=== PATIENT | female | born 1950 | race Caucasian/White ===

== ENCOUNTER 2020-07-13 17:56 | Inpatient (IN) | payer MEDICARE, BC ==
[2020-07-13] MEDS ORDERED: Docusate Sodium 100 MG Cap PO PRN (18:17)
[2020-07-13] MEDS ORDERED: Ondansetron 4 MG Tab.DIS PO PRN (18:17)
[2020-07-13] MEDS ORDERED: Temazepam 15 MG Cap PO PRN (18:17)
[2020-07-13] MEDS ORDERED: oxyCODONE 5 MG Tab PO PRN (18:17)
[2020-07-13] MEDS ORDERED: Acetaminophen 325 MG Tab PO PRN (18:17)
--- NOTE | 2020-07-13 18:29 | PCM.HP.2 ---
H&P History of Present Illness - General Date of Service: 07/13/20 Admit Problem/Dx: Admission Diagnosis/Problem Admission Diagnosis/Problem Hypoxia Source of Information: Patient, Old Records History Limitations: Reports: No Limitations - History of Present Illness Initial Comments - Free Text/Narative: Patient is a 69-year-old lady who is a direct admission from [facility] due to hypoxia associated with COVID-19. Patient reports that her shortness of breath with fever and chills started approximately 6 days ago. The patient then had presented to the emergency department and was subsequently transferred here for direct admission. The patient had been in her usual state of health. She does take medications for hypertension and dyslipidemia. The p atient also has had no specific aggravating or relieving factors although when the patient says that she is walking around she feels more short of breath. Patient has denied any pain. She has no nausea or vomiting. Onset of Symptoms: Reports: Gradual Duration of Symptoms: Reports: Day(s): Location: Reports: Generalized Quality: Reports: Ache Improves with: Reports: Rest, Other (Oxygen) Worsens with: Reports: Breathing, Movement Context: Reports: Sick Contact Associated Symptoms: Reports: Cough, Fever/Chills - Related Data Allergies/Adverse Reactions: Allergies Allergy/AdvReac Type Severity Reaction Status Date / Time atorvastatin [From Lipitor] Allergy Body Aches Verified 07/13/20 18:12 pravastatin Allergy Body Aches Verified 07/13/20 18:12 Home Medications: Home Meds Aspirin [Halfprin] 81 mg PO DAILY 07/13/20 [History] Furosemide 40 mg PO DAILY 07/13/20 [History] Magnesium Oxide 250 mg PO DAILY 07/13/20 [History] Omeprazole 20 mg PO DAILY 07/13/20 [History] Rosuvastatin [Crestor] 20 mg PO DAILY 07/13/20 [History] lisinopriL [Lisinopril] 10 mg PO DAILY 07/13/20 [History] traMADol [Ultram] 50 - 100 mg PO Q6HR PRN 07/13/20 [History] Past Medical History HEENT History: Reports: Impaired Vision Other HEENT History: wears glasses, upper partial plate Cardiovascular History: Reports: High Cholesterol, Hypertension Other Cardiovascular History: "heart palpitations" Gastrointestinal History: Reports: GERD Genitourinary History: Reports: Chronic Renal Insuffiency Other Genitourinary History: stage 3 [employer] History: Reports: Musculoskeletal History: Reports: Neck Pain, Chronic Other Musculoskeletal History: been going to physical therapy for hip/leg pain, muscle spasms Neurological History: Reports: None Psychiatric History: Reports: None Endocrine/Metabolic History: Reports: None Dermatologic History: Reports: Other (See Below) Other Dermatologic History: small scabbed area to r upper thigh due to a mole being frozen off. - Infectious Disease History Infectious Disease History: Reports: Chicken Pox, Measles, Mumps - Past Surgical History Cardiovascular Surgical History: Reports: None GI Surgical History: Reports: Cholecystectomy, Colonoscopy, EGD Female Surgical History: Reports: Hysterectomy Other Musculoskeletal Surgeries/Procedures:: back fracture-no sx. buldging discs Oncologic Surgical History: Reports: Biopsy of Breast Other Oncologic Surgeries/Procedures: benign Social & Family History - Family History Family Medical History: Noncontributory - Tobacco Use Tobacco Use Status *Q: Never Tobacco User - Caffeine Use Caffeine Use: Reports: Coffee - Recreational Drug Use Recreational Drug Use: No H&P Review of Systems - Review of Systems: Review Of Systems: See Below General: Reports: Fever, Chills, Malaise, Weakness HEENT: Reports: No Symptoms Pulmonary: Reports: Shortness of Breath, Cough Cardiovascular: Reports: No Symptoms Gastrointestinal: Reports: No Symptoms Genitourinary: Reports: No Symptoms Musculoskeletal: Reports: No Symptoms Skin: Reports: No Symptoms Psychiatric: Reports: No Symptoms Neurological: Reports: No Symptoms Hematologic/Lymphatic: Reports: No Symptoms Immunologic: Reports: No Symptoms Exam - Exam Exam: See Below - Vital Signs Vital Signs: Last Vital Signs Temp 36.9 C 07/13/20 17:55 Pulse 93 07/13/20 17:51 Resp 16 07/13/20 17:51 BP 131/95 H 07/13/20 17:51 Pulse Ox 94 L 07/13/20 17:51 Weight: 67.54 kg - Exam Quality Assessment: No: Supplemental Oxygen General: Alert, Oriented, Cooperative HEENT: Conjunctiva Clear, EACs Clear, EOMI, Hearing Intact, Mucosa Moist & [place], Nares Patent Neck: Supple, Trachea Midline Lungs: Normal Respiratory Effort, Crackles Cardiovascular: Regular Rate, Regular Rhythm GI/Abdominal Exam: Normal Bowel Sounds, Soft, Non-Tender, No Distention (Female) Exam: Deferred Rectal (Female) Exam: Deferred Back Exam: Normal Inspection, Full Range of Motion Extremities: Normal Inspection, Normal Range of Motion, No Pedal Edema Skin: Warm, Dry, Intact Neurological: Cranial Nerves Intact Neuro Extensive - Mental Status: Alert, Oriented x3 Neuro Extensive - Motor, Sensory, Reflexes: CN II-XII Intact, Normal Gait Psychiatric: Alert, Normal Affect, Normal Mood - Patient Data Result Diagrams: 07/13/20 18:34 07/13/20 18:34 Sepsis Event Note - Focused Exam Vital Signs: Vital Signs Temp Pulse Resp BP Pulse Ox 07/13/20 17:55 36.9 C 07/13/20 17:51 93 16 131/95 H 94 L - Problem List (1) COVID-19 SNOMED Code(s): 356744840 ICD Code: U07.1 - COVID-19 Status: Acute Priority: High Current Visit: Yes (2) Hypoxia SNOMED Code(s): 645381663 ICD Code: R09.02 - HYPOXEMIA Status: Acute Current Visit: Yes (3) Hypertension SNOMED Code(s): 00485798 ICD Code: I10 - ESSENTIAL (PRIMARY) HYPERTENSION Status: Acute Current Visit: Yes (4) Coronary artery disease SNOMED Code(s): 88049444 ICD Code: I25.10 - ATHSCL HEART DISEASE OF [place] CORONARY ARTERY W/O ANG PCTRS Status: Acute Current Visit: Yes (5) Chronic kidney disease, stage III (moderate) SNOMED Code(s): 020921424 ICD Code: N18.30 - CHRONIC KIDNEY DISEASE, STAGE 3 UNSPECIFIED Status: Acute Current Visit: Yes Qualifiers: Chronic kidney disease stage 3 subtype: stage 3b (GFR 30-44) Qualified Code(s): N18.32 - Chronic kidney disease, stage 3b Problem List Initiated/Reviewed/Updated: Yes Orders Last 24hrs: Active Orders 24 hr Category Date Time Status Patient Status [ADT] Routine ADT 07/13/20 17:57 Active Cardiac Monitoring [RC] CONTINUOUS Care 07/13/20 18:17 Ordered Oxygen Therapy [RC] PRN Care 07/13/20 18:17 Ordered Up ad Ly [RC] ASDIRECTED Care 07/13/20 18:17 Ordered VTE/DVT Education [RC] PER UNIT ROUTINE Care 07/13/20 18:17 Ordered Vital Signs [RC] Q4H Care 07/13/20 18:17 Ordered Heart Healthy Diet [DIET] Diet 07/14/20 Breakfast Ordered Chest 1V Frontal [CR] Routine Exams 07/13/20 18:13 Ordered C-REACTIVE PROTEIN [CHEM] Routine Lab 07/13/20 18:17 Ordered CBC WITH AUTO DIFF [HEME] Routine Lab 07/13/20 18:17 Ordered COMPREHENSIVE METABOLIC PN,CMP [CHEM] Routine Lab 07/13/20 18:17 Ordered D-DIMER QUANTITATIVE [COAG] Routine Lab 07/13/20 18:17 Ordered FERRITIN [CHEM] Routine Lab 07/13/20 18:17 Ordered LACTATE DEHYDROGENASE,LDH [CHEM] Routine Lab 07/13/20 18:17 Ordered MAGNESIUM [CHEM] Routine Lab 07/13/20 18:17 Ordered PHOSPHORUS [CHEM] Routine Lab 07/13/20 18:17 Ordered PRO B-TYPE NATRIUR PEPT,BNPPRO [CHEM] Routine Lab 07/13/20 18:17 Ordered PROCALCITONIN [REF] Routine Lab 07/13/20 18:17 Ordered TROPONIN I [CHEM] Routine Lab 07/13/20 18:17 Ordered VITAMIN D,25-HYDROXY [CHEM] Routine Lab 07/13/20 18:17 Ordered Acetaminophen [TylenoL] Med 07/13/20 18:17 Ordered 650 mg PO Q4H PRN Docusate Sodium [Colace] Med 07/13/20 18:17 Ordered 100 mg PO BID PRN Enoxaparin [Lovenox] Med 07/13/20 18:30 Ordered 40 mg SUBCUT DAILY Ondansetron [Zofran ODT] Med 07/13/20 18:17 Ordered 4 mg PO Q6H PRN Remdesivir (Eua) [Remdesivir Powder (EUA)] 100 mg Med 07/14/20 18:30 Ordered Sodium Chloride 0.9% [Normal Saline] 100 ml IV Q24H Remdesivir (Eua) [Remdesivir Powder (EUA)] 200 mg Med 07/13/20 18:22 Ordered Sodium Chloride 0.9% [Normal Saline] 250 ml IV ONETIME Sodium Chloride 0.9% [Normal Saline] 1,000 ml Med 07/13/20 18:30 Ordered IV ASDIRECTED Temazepam [Restoril] Med 07/13/20 18:17 Ordered 15 mg PO BEDTIME PRN dexAMETHasone [Dexamethasone] Med 07/13/20 18:30 Ordered 6 mg IV DAILY oxyCODONE Med 07/13/20 18:17 Ordered 5 mg PO Q4H PRN Resuscitation Status Routine Resus Stat 07/13/20 18:17 Ordered Medication Orders Acetaminophen (Tylenol) 650 mg PO Q4H PRN PRN Reason: Pain (Mild 1-3)/fever Dexamethasone (Dexamethasone) 6 mg IV DAILY WILLIE Docusate Sodium (Colace) 100 mg PO BID PRN PRN Reason: Constipation Enoxaparin Sodium (Lovenox) 40 mg SUBCUT DAILY [facility] Sodium Chloride (Normal Saline) 1,000 mls @ 75 mls/hr IV ASDIRECTED WILLIE Remdesivir 200 mg/ Sodium (Chloride) 250 mls @ 250 mls/hr IV ONETIME ONE Stop: 07/13/20 18:23 Remdesivir 100 mg/ Sodium (Chloride) 100 mls @ 100 mls/hr IV Q24H WILLIE Stop: 07/17/20 19:29 Ondansetron HCl (Zofran Odt) 4 mg PO Q6H PRN PRN Reason: nausea, able to take PO Oxycodone HCl (Oxycodone) 5 mg PO Q4H PRN PRN Reason: Pain (moderate 4-6) Temazepam (Restoril) 15 mg PO BEDTIME PRN PRN Reason: Sleep Assessment/Plan Comment:: The patient has been admitted as an inpatient due to the COVID-19 treatment. The patient's oxygen will be adjusted as necessary to keep her oxygen saturations around 90 to 92%. The patient also has been started on remdesivir 200 mg IV x1 followed by 100 mg IV x4. I have also discussed with the patient the risk, benefits and alternatives of convalescent plasma and the patient has been willing to take this. The patient will be started on Pepcid 20 mg p.o. twice daily. The patient also has been started on dexamethasone 6 mg IV along with likely transition to p.o. dexamethasone. Patient also has chronic kidney disease stage III with an EGFR of 40 mL/min. Her medications will be renally dosed as necessary. The patient will be kept on a regular diet as tolerated. She has been encouraged to ambulate in the room. The patient's home medications have been restarted. She should be appropriate for discharge in 3 to 5 days. - Mortality Measure Prognosis:: Good
[2020-07-13 19:50] LABS: VITAMIN D,25-HYDROXY 41.8 ng/ml (30.0-100.0)
[2020-07-13] MEDS: Sodium Chloride 0.9% 1,000 ML IV SCH (19:51)
[2020-07-13] MEDS: Enoxaparin 40 MG/0.4 ML Syringe SUBCUT SCH (21:00)
[2020-07-13] MEDS ORDERED: Sodium Chloride 0.9% 100 ML ONE (21:58)
[2020-07-14] MEDS ORDERED: traMADol 50 MG Tab PO PRN (07:51)
[2020-07-14] MEDS: Aspirin 81 MG Tab.EC PO SCH (08:33)
[2020-07-14] MEDS: Rosuvastatin 10 MG Tab PO SCH (08:33)
[2020-07-14] MEDS: Lisinopril 10 MG Tab PO SCH (08:34)
[2020-07-14] MEDS: Magnesium Oxide 400 MG Tab PO SCH (08:34)
[2020-07-14] MEDS: Sodium Chloride 0.9% 1,000 ML IV SCH (08:55)
[2020-07-14] MEDS ORDERED: Famotidine 20 MG Tab PO SCH (09:00)
[2020-07-14] MEDS ORDERED: Dexamethasone 10 MG/ML SDV IV SCH (10:00)
[2020-07-14] MEDS: Furosemide 20 MG Tab PO PRN (11:43)
--- NOTE | 2020-07-14 14:09 | PCM.PN ---
<Maritza Jackson M - Last Filed: 07/14/20 14:28> - General Info Date of Service: 07/14/20 Admission Dx/Problem (Free Text): Admission Diagnosis/Problem Admission Diagnosis/Problem Hypoxia Subjective Update: Patient reports feeling better than yesterday. She states that today is the first day she has finally had an appetite. She is on room air. Complains of pain in her chest when she takes a deep breath or coughs. She states that cough has significantly decreased from what it had been. Functional Status: Reports: Pain Controlled, Tolerating Diet, Ambulating, Urinating, Incentive Spirometry - Review of Systems General: Reports: Fatigue HEENT: Reports: No Symptoms Pulmonary: Reports: Cough, Sputum (Scant amount of white sputum.) Cardiovascular: Reports: Edema (Bilateral lower extremities.) Gastrointestinal: Reports: Diarrhea (States that she had a significant amount of diarrhea within the last few days but that has decreased as well.) Genitourinary: Reports: No Symptoms Musculoskeletal: Reports: No Symptoms Skin: Reports: No Symptoms Neurological: Reports: No Symptoms Psychiatric: Reports: No Symptoms - Patient Data Vitals - Most Recent: Last Vital Signs Temp 97.5 F 07/14/20 11:44 Pulse 86 07/14/20 11:44 Resp 29 H 07/14/20 12:00 BP 107/57 L 07/14/20 11:44 Pulse Ox 94 L 07/14/20 11:44 Weight - Most Recent: 67.54 kg I&O - Last 24 Hours: Intake & Output 07/13/20 07/14/20 07/14/20 22:59 06:59 14:59 Intake Total 0 2096 775 Output Total 800 Balance 0 1296 775 Lab Results Last 24 Hours: Laboratory Results - last 24 hr 07/13/20 07/13/20 07/13/20 Range/Units 18:34 18:34 18:34 WBC 3.05 L (3.98-10.04) K/mm3 RBC 4.55 (3.98-5.22) M/mm3 Hgb 14.3 (11.2-15.7) gm/dl Hct 41.7 (34.1-44.9) % MCV 91.6 (79.4-94.8) fl MCH 31.4 (25.6-32.2) pg MCHC 34.3 (32.2-35.5) g/dl RDW Std Deviation 42.8 (36.4-46.3) fL Plt Count 206 (182-369) K/mm3 MPV 8.9 L (9.4-12.3) fl Neut % (Auto) 86.6 H (34.0-71.1) % Lymph % (Auto) 9.5 L (19.3-51.7) % Burnett % (Auto) 3.3 L (4.7-12.5) % Eos % (Auto) 0 L (0.7-5.8) Baso % (Auto) 0.3 (0.1-1.2) % Neut # (Auto) 2.64 (1.56-6.13) K/mm3 Lymph # (Auto) 0.29 L (1.18-3.74) K/mm3 [place] # (Auto) 0.10 L (0.24-0.36) K/mm3 Eos # (Auto) 0.00 L (0.04-0.36) K/mm3 Baso # (Auto) 0.01 (0.01-0.08) K/mm3 Manual Slide Review Abnormal smear D-Dimer, Quantitative 1.54 H (0.19-0.50) mg/L Sodium 135 L (136-145) mEq/L Potassium 4.1 (3.5-5.1) mEq/L Chloride 100 (98-107) mEq/L Carbon Dioxide 20 L (21-32) mEq/L Anion Gap 19.1 H (5-15) BUN 11 (7-18) mg/dL Creatinine 1.0 (0.55-1.02) mg/dL Est Cr Clr Drug Dosing 40.63 mL/min Estimated GFR (MDRD) 55 (>60) mL/min BUN/Creatinine Ratio 11.0 L (14-18) Glucose 193 H (80-115) mg/dL Lactic Acid (0.4-2.0) mmol/L Calcium 8.4 L (8.5-10.1) mg/dL Phosphorus 2.4 L (2.6-4.7) mg/dL Magnesium 2.0 (1.8-2.4) mg/dl Ferritin (8-252) ng/ml Total Bilirubin 0.3 (0.2-1.0) mg/dL AST 87 H (15-37) U/L ALT 73 H (14-59) U/L Alkaline Phosphatase 75 (46-116) U/L Lactate Dehydrogenase 309 H (81-234) U/L Troponin I < 0.017 (0.00-0.056) ng/mL C-Reactive Protein 5.0 H* (<1.0) mg/dL NT-Pro-B Natriuret Pep (0-125) pg/mL Total Protein 7.4 (6.4-8.2) g/dl Albumin 3.4 (3.4-5.0) g/dl Globulin 4.0 gm/dL Albumin/Globulin Ratio 0.9 L (1-2) Vitamin D 25-Hydroxy 41.8 (30.0-100.0) ng/ml Blood Type 07/13/20 07/13/20 07/13/20 Range/Units 18:34 18:34 18:34 WBC (3.98-10.04) K/mm3 RBC (3.98-5.22) M/mm3 Hgb (11.2-15.7) gm/dl Hct (34.1-44.9) % MCV (79.4-94.8) fl MCH (25.6-32.2) pg MCHC (32.2-35.5) g/dl RDW Std Deviation (36.4-46.3) fL Plt Count (182-369) K/mm3 MPV (9.4-12.3) fl Neut % (Auto) (34.0-71.1) % Lymph % (Auto) (19.3-51.7) % Burnett % (Auto) (4.7-12.5) % Eos % (Auto) (0.7-5.8) Baso % (Auto) (0.1-1.2) % Neut # (Auto) (1.56-6.13) K/mm3 Lymph # (Auto) (1.18-3.74) K/mm3 Burnett # (Auto) (0.24-0.36) K/mm3 Eos # (Auto) (0.04-0.36) K/mm3 Baso # (Auto) (0.01-0.08) K/mm3 Manual Slide Review D-Dimer, Quantitative (0.19-0.50) mg/L Sodium (136-145) mEq/L Potassium (3.5-5.1) mEq/L Chloride (98-107) mEq/L Carbon Dioxide (21-32) mEq/L Anion Gap (5-15) BUN (7-18) mg/dL Creatinine (0.55-1.02) mg/dL Est Cr Clr Drug Dosing mL/min Estimated GFR (MDRD) (>60) mL/min BUN/Creatinine Ratio (14-18) Glucose (80-115) mg/dL Lactic Acid (0.4-2.0) mmol/L Calcium (8.5-10.1) mg/dL Phosphorus (2.6-4.7) mg/dL Magnesium (1.8-2.4) mg/dl Ferritin 643 H (8-252) ng/ml Total Bilirubin (0.2-1.0) mg/dL AST (15-37) U/L ALT (14-59) U/L Alkaline Phosphatase (46-116) U/L Lactate Dehydrogenase (81-234) U/L Troponin I (0.00-0.056) ng/mL C-Reactive Protein (<1.0) mg/dL NT-Pro-B Natriuret Pep 74 (0-125) pg/mL Total Protein (6.4-8.2) g/dl Albumin (3.4-5.0) g/dl Globulin gm/dL Albumin/Globulin Ratio (1-2) Vitamin D 25-Hydroxy (30.0-100.0) ng/ml Blood Type O POSITIVE 07/13/20 07/14/20 07/14/20 Range/Units 18:49 09:42 09:42 WBC 6.12 (3.98-10.04) K/mm3 RBC 4.29 (3.98-5.22) M/mm3 Hgb 13.5 (11.2-15.7) gm/dl Hct 39.9 (34.1-44.9) % MCV 93.0 (79.4-94.8) fl MCH 31.5 (25.6-32.2) pg MCHC 33.8 (32.2-35.5) g/dl RDW Std Deviation 43.2 (36.4-46.3) fL Plt Count 188 (182-369) K/mm3 MPV 9.1 L (9.4-12.3) fl Neut % (Auto) 87.0 H (34.0-71.1) % Lymph % (Auto) 9.2 L (19.3-51.7) % Burnett % (Auto) 3.1 L (4.7-12.5) % Eos % (Auto) 0.2 L (0.7-5.8) Baso % (Auto) 0.2 (0.1-1.2) % Neut # (Auto) 5.33 (1.56-6.13) K/mm3 Lymph # (Auto) 0.56 L (1.18-3.74) K/mm3 Burnett # (Auto) 0.19 L (0.24-0.36) K/mm3 Eos # (Auto) 0.01 L (0.04-0.36) K/mm3 Baso # (Auto) 0.01 (0.01-0.08) K/mm3 Manual Slide Review Normal smear D-Dimer, Quantitative 1.24 H (0.19-0.50) mg/L Sodium (136-145) mEq/L Potassium (3.5-5.1) mEq/L Chloride (98-107) mEq/L Carbon Dioxide (21-32) mEq/L Anion Gap (5-15) BUN (7-18) mg/dL Creatinine (0.55-1.02) mg/dL Est Cr Clr Drug Dosing mL/min Estimated GFR (MDRD) (>60) mL/min BUN/Creatinine Ratio (14-18) Glucose (80-115) mg/dL Lactic Acid 1.1 (0.4-2.0) mmol/L Calcium (8.5-10.1) mg/dL Phosphorus (2.6-4.7) mg/dL Magnesium (1.8-2.4) mg/dl Ferritin (8-252) ng/ml Total Bilirubin (0.2-1.0) mg/dL AST (15-37) U/L ALT (14-59) U/L Alkaline Phosphatase (46-116) U/L Lactate Dehydrogenase (81-234) U/L Troponin I (0.00-0.056) ng/mL C-Reactive Protein (<1.0) mg/dL NT-Pro-B Natriuret Pep (0-125) pg/mL Total Protein (6.4-8.2) g/dl Albumin (3.4-5.0) g/dl Globulin gm/dL Albumin/Globulin Ratio (1-2) Vitamin D 25-Hydroxy (30.0-100.0) ng/ml Blood Type 07/14/20 Range/Units 09:42 WBC (3.98-10.04) K/mm3 RBC (3.98-5.22) M/mm3 Hgb (11.2-15.7) gm/dl Hct (34.1-44.9) % MCV (79.4-94.8) fl MCH (25.6-32.2) pg MCHC (32.2-35.5) g/dl RDW Std Deviation (36.4-46.3) fL Plt Count (182-369) K/mm3 MPV (9.4-12.3) fl Neut % (Auto) (34.0-71.1) % Lymph % (Auto) (19.3-51.7) % Burnett % (Auto) (4.7-12.5) % Eos % (Auto) (0.7-5.8) Baso % (Auto) (0.1-1.2) % Neut # (Auto) (1.56-6.13) K/mm3 Lymph # (Auto) (1.18-3.74) K/mm3 Burnett # (Auto) (0.24-0.36) K/mm3 Eos # (Auto) (0.04-0.36) K/mm3 Baso # (Auto) (0.01-0.08) K/mm3 Manual Slide Review D-Dimer, Quantitative (0.19-0.50) mg/L Sodium 139 (136-145) mEq/L Potassium 3.7 (3.5-5.1) mEq/L Chloride 104 (98-107) mEq/L Carbon Dioxide 21 (21-32) mEq/L Anion Gap 17.7 H (5-15) BUN 11 (7-18) mg/dL Creatinine 0.9 (0.55-1.02) mg/dL Est Cr Clr Drug Dosing 45.14 mL/min Estimated GFR (MDRD) > 60 (>60) mL/min BUN/Creatinine Ratio 12.2 L (14-18) Glucose 133 H (80-115) mg/dL Lactic Acid (0.4-2.0) mmol/L Calcium 8.6 (8.5-10.1) mg/dL Phosphorus 2.2 L (2.6-4.7) mg/dL Magnesium 1.9 (1.8-2.4) mg/dl Ferritin (8-252) ng/ml Total Bilirubin 0.3 (0.2-1.0) mg/dL AST 73 H (15-37) U/L ALT 67 H (14-59) U/L Alkaline Phosphatase 72 (46-116) U/L Lactate Dehydrogenase (81-234) U/L Troponin I (0.00-0.056) ng/mL C-Reactive Protein 3.4 H* (<1.0) mg/dL NT-Pro-B Natriuret Pep (0-125) pg/mL Total Protein 7.0 (6.4-8.2) g/dl Albumin 3.2 L (3.4-5.0) g/dl Globulin 3.8 gm/dL Albumin/Globulin Ratio 0.8 L (1-2) Vitamin D 25-Hydroxy (30.0-100.0) ng/ml Blood Type Med Orders - Current: Current Medications Acetaminophen (Tylenol) 650 mg PO Q4H PRN PRN Reason: Pain (Mild 1-3)/fever Aspirin (Halfprin) 81 mg PO DAILY [facility] Last Admin: 07/14/20 08:33 Dose: 81 mg Documented by: Dexamethasone (Dexamethasone) 6 mg PO DAILY [facility] Stop: 07/23/20 09:01 Docusate Sodium (Colace) 100 mg PO BID PRN PRN Reason: Constipation Enoxaparin Sodium (Lovenox) 40 mg SUBCUT DAILY@2100 [facility] Last Admin: 07/13/20 21:00 Dose: 40 mg Documented by: Famotidine (Pepcid) 20 mg PO DAILY [facility] Furosemide (Lasix) 20 mg PO DAILY PRN PRN Reason: Edema Last Admin: 07/14/20 11:43 Dose: 20 mg Documented by: Remdesivir 100 mg/ Sodium (Chloride) 100 mls @ 100 mls/hr IV Q24H [facility] Stop: 07/17/20 20:59 Lisinopril (Prinivil) 10 mg PO DAILY [facility] Last Admin: 07/14/20 08:34 Dose: 10 mg Documented by: Magnesium Oxide (Magnesium Oxide) 400 mg PO DAILY [facility] Last Admin: 07/14/20 08:34 Dose: 400 mg Documented by: Ondansetron HCl (Zofran Odt) 4 mg PO Q6H PRN PRN Reason: nausea, able to take PO Oxycodone HCl (Oxycodone) 5 mg PO Q4H PRN PRN Reason: Pain (moderate 4-6) Rosuvastatin Calcium (Crestor) 20 mg PO DAILY [facility] Last Admin: 07/14/20 08:33 Dose: 20 mg Documented by: Temazepam (Restoril) 15 mg PO BEDTIME PRN PRN Reason: Sleep Last Admin: 07/14/20 01:04 Dose: 15 mg Documented by: Tramadol HCl (Ultram) 50 mg PO Q6H PRN PRN Reason: Pain Discontinued Medications Dexamethasone (Dexamethasone) 6 mg IV DAILY [facility] Last Admin: 07/14/20 09:31 Dose: 6 mg Documented by: Famotidine (Pepcid) 20 mg PO BID [facility] Last Admin: 07/14/20 08:34 Dose: 20 mg Documented by: Sodium Chloride (Normal Saline) 1,000 mls @ 75 mls/hr IV ASDIRECTED [facility] Last Admin: 07/14/20 08:55 Dose: 75 mls/hr Documented by: Remdesivir 200 mg/ Sodium (Chloride) 250 mls @ 250 mls/hr IV ONETIME ONE Stop: 07/13/20 20:59 Last Admin: 07/13/20 21:00 Dose: 250 mls/hr Documented by: Sodium Chloride (Normal Saline) Confirm Administered Dose 100 mls @ as directed .ROUTE .STK-MED ONE Stop: 07/13/20 21:59 Last Admin: 07/14/20 03:38 Dose: Not Given Documented by: - Exam Quality Assessment: DVT Prophylaxis (Lovenox). No: Supplemental Oxygen General: Alert, Oriented, Cooperative, No Acute Distress HEENT: Pupils Equal, Pupils Reactive, Mucous Membr. Moist/Stamps Neck: Supple, Trachea Midline. No: Lymphadenopathy Lungs: Decreased Breath Sounds, Crackles (Crackles noted in the bases.) Cardiovascular: Regular Rate, Regular Rhythm, No Murmurs GI/Abdominal Exam: Normal Bowel Sounds, Soft, Non-Tender, No Distention (Female) Exam: Deferred Back Exam: Normal Inspection, Full Range of Motion Extremities: Normal Inspection, Normal Range of Motion, Non-Tender, Normal Capillary Refill, Pedal Edema (This edema noted to the bilateral lower extremit ies.) Peripheral Pulses: 2+: Radial (L), Radial (R), Dorsalis Pedis (L), Dorsalis Pedis (R) Skin: Warm, Dry, Intact Neurological: No New Focal Deficit Psy/Mental Status: Alert, Normal Affect, Normal Mood Sepsis Event Note - Evaluation Sepsis Screening Result: No Definite Risk - Focused Exam Vital Signs: Vital Signs Temp Temp Pulse Pulse Resp BP BP 07/14/20 12:00 29 H 07/14/20 11:44 97.5 F 86 29 H 107/57 L 07/14/20 11:02 13 07/14/20 10:00 26 H 07/14/20 09:00 30 H 07/14/20 08:34 131/63 07/14/20 08:29 97.5 F 76 18 131/63 07/14/20 08:26 97.5 F 75 23 H 131/63 07/14/20 08:00 27 H 07/14/20 07:00 22 H 07/14/20 06:00 18 07/14/20 05:52 97.5 F 70 19 104/59 L 07/14/20 05:00 30 H 07/14/20 04:00 34 H 07/14/20 03:00 21 H 07/14/20 02:00 29 H Pulse Ox 07/14/20 12:00 07/14/20 11:44 94 L 07/14/20 11:02 07/14/20 10:00 07/14/20 09:00 07/14/20 08:34 07/14/20 08:29 91 L 07/14/20 08:26 91 L 07/14/20 08:00 07/14/20 07:00 07/14/20 06:00 07/14/20 05:52 93 L 07/14/20 05:00 07/14/20 04:00 07/14/20 03:00 07/14/20 02:00 - Problem List & Annotations (1) COVID-19 SNOMED Code(s): 316479086 Code(s): U07.1 - COVID-19 Status: Acute Priority: High Current Visit: Yes (2) Chronic kidney disease, stage III (moderate) SNOMED Code(s): 234901049 Code(s): N18.30 - CHRONIC KIDNEY DISEASE, STAGE 3 UNSPECIFIED Status: Acute Current Visit: Yes Qualifiers: Chronic kidney disease stage 3 subtype: stage 3b (GFR 30-44) Qualified Code(s): N18.32 - Chronic kidney disease, stage 3b (3) Coronary artery disease SNOMED Code(s): 92470728 Code(s): I25.10 - ATHSCL HEART DISEASE OF [place] CORONARY ARTERY W/O ANG PCTRS Status: Acute Current Visit: Yes Qualifiers: Coronary Disease-Associated Artery/Lesion type: unspecified vessel or lesion type Associated angina: angina presence unspecified (4) Hypertension SNOMED Code(s): 16855274 Code(s): I10 - ESSENTIAL (PRIMARY) HYPERTENSION Status: Acute Current Visit: Yes Qualifiers: Hypertension type: unspecified Qualified Code(s): I10 - Essential (primary) hypertension (5) Hypoxia SNOMED Code(s): 047104542 Code(s): R09.02 - HYPOXEMIA Status: Acute Priority: High Current Visit: Yes - Problem List Review Problem List Initiated/Reviewed/Updated: Yes - My Orders Last 24 Hours: My Active Orders 07/14/20 09:43 RT Incentive Spirometry [RC] Q1HWA 07/15/20 09:15 C-REACTIVE PROTEIN [CHEM] DAILY CBC WITH AUTO DIFF [HEME] DAILY COMPREHENSIVE METABOLIC PN,CMP [CHEM] DAILY D-DIMER QUANTITATIVE [COAG] DAILY MAGNESIUM [CHEM] DAILY PHOSPHORUS [CHEM] DAILY 07/16/20 09:15 C-REACTIVE PROTEIN [CHEM] DAILY CBC WITH AUTO DIFF [HEME] DAILY COMPREHENSIVE METABOLIC PN,CMP [CHEM] DAILY D-DIMER QUANTITATIVE [COAG] DAILY MAGNESIUM [CHEM] DAILY PHOSPHORUS [CHEM] DAILY 07/17/20 09:15 C-REACTIVE PROTEIN [CHEM] DAILY CBC WITH AUTO DIFF [HEME] DAILY COMPREHENSIVE METABOLIC PN,CMP [CHEM] DAILY D-DIMER QUANTITATIVE [COAG] DAILY MAGNESIUM [CHEM] DAILY PHOSPHORUS [CHEM] DAILY 07/18/20 09:15 C-REACTIVE PROTEIN [CHEM] DAILY CBC WITH AUTO DIFF [HEME] DAILY COMPREHENSIVE METABOLIC PN,CMP [CHEM] DAILY D-DIMER QUANTITATIVE [COAG] DAILY MAGNESIUM [CHEM] DAILY PHOSPHORUS [CHEM] DAILY - Assessment Assessment:: 07/14/20 The patient is no longer on oxygen supplementation. Remdesivir and dexamethasone day 2. Has received 2 units of convalescent plasma. Appetite is returning and is drinking well. Vital signs are stable. CBC unremarkable D-dimer is 1.24 from 1.54. Sodium 139 from 135 Potassium 3.7 from 4.1 BUN 11 Creatinine 0.9 C-reactive protein 3.4 from 5.0 - Plan Plan:: The patient has been admitted as an inpatient due to the COVID-19 treatment. The patient's oxygen will be adjusted as necessary to keep her oxygen saturations around 90 to 92%. The patient also has been started on remdesivir 200 mg IV x1 followed by 100 mg IV x4. I have also discussed with the patient the risk, benefits and alternatives of convalescent plasma and the patient has been willing to take this. The patient will be started on Pepcid 20 mg p.o. twice daily. The patient also has been started on dexamethasone 6 mg IV along with likely transition to p.o. dexamethasone. Patient also has chronic kidney disease stage III with an EGFR of 40 mL/min. Her medications will be renally dosed as necessary. The patient will be kept on a regular diet as tolerated. She has been encouraged to ambulate in the room. The patient's home medications have been restarted. She should be appropriate for discharge in 3 to 5 days. 07/14/20 Continue remdesivir and dexamethasone day 2 Repeat labs as needed Discontinue IV fluids Give patient's home dose of 20 mg of Lasix Incentive spirometer Monitor for hypoxia Encourage ambulation in room Increase p.o. intake At this time the patient will remain admitted for antiviral treatment for Covid. She will be here at least 3 more days. Continue Lovenox for DVT prophylaxis. <Nate Yadav - Last Filed: 07/14/20 15:24> - Patient Data Vitals - Most Recent: Last Vital Signs Temp 36.4 C 07/14/20 12:00 Pulse 87 07/14/20 12:00 Resp 22 H 07/14/20 12:00 BP 107/57 L 07/14/20 12:00 Pulse Ox 95 07/14/20 12:00 I&O - Last 24 Hours: Intake & Output 07/14/20 07/14/20 07/14/20 06:59 14:59 22:59 Intake Total 2096 775 Output Total 800 Balance 1296 775 Lab Results Last 24 Hours: Laboratory Results - last 24 hr 07/13/20 07/13/20 07/13/20 Range/Units 18:34 18:34 18:34 WBC 3.05 L (3.98-10.04) K/mm3 RBC 4.55 (3.98-5.22) M/mm3 Hgb 14.3 (11.2-15.7) gm/dl Hct 41.7 (34.1-44.9) % MCV 91.6 (79.4-94.8) fl MCH 31.4 (25.6-32.2) pg MCHC 34.3 (32.2-35.5) g/dl RDW Std Deviation 42.8 (36.4-46.3) fL Plt Count 206 (182-369) K/mm3 MPV 8.9 L (9.4-12.3) fl Neut % (Auto) 86.6 H (34.0-71.1) % Lymph % (Auto) 9.5 L (19.3-51.7) % Burnett % (Auto) 3.3 L (4.7-12.5) % Eos % (Auto) 0 L (0.7-5.8) Baso % (Auto) 0.3 (0.1-1.2) % Neut # (Auto) 2.64 (1.56-6.13) K/mm3 Lymph # (Auto) 0.29 L (1.18-3.74) K/mm3 Burnett # (Auto) 0.10 L (0.24-0.36) K/mm3 Eos # (Auto) 0.00 L (0.04-0.36) K/mm3 Baso # (Auto) 0.01 (0.01-0.08) K/mm3 Manual Slide Review Abnormal smear D-Dimer, Quantitative 1.54 H (0.19-0.50) mg/L Sodium 135 L (136-145) mEq/L Potassium 4.1 (3.5-5.1) mEq/L Chloride 100 (98-107) mEq/L Carbon Dioxide 20 L (21-32) mEq/L Anion Gap 19.1 H (5-15) BUN 11 (7-18) mg/dL Creatinine 1.0 (0.55-1.02) mg/dL Est Cr Clr Drug Dosing 40.63 mL/min Estimated GFR (MDRD) 55 (>60) mL/min BUN/Creatinine Ratio 11.0 L (14-18) Glucose 193 H (80-115) mg/dL Lactic Acid (0.4-2.0) mmol/L Calcium 8.4 L (8.5-10.1) mg/dL Phosphorus 2.4 L (2.6-4.7) mg/dL Magnesium 2.0 (1.8-2.4) mg/dl Ferritin (8-252) ng/ml Total Bilirubin 0.3 (0.2-1.0) mg/dL AST 87 H (15-37) U/L ALT 73 H (14-59) U/L Alkaline Phosphatase 75 (46-116) U/L Lactate Dehydrogenase 309 H (81-234) U/L Troponin I < 0.017 (0.00-0.056) ng/mL C-Reactive Protein 5.0 H* (<1.0) mg/dL NT-Pro-B Natriuret Pep (0-125) pg/mL Total Protein 7.4 (6.4-8.2) g/dl Albumin 3.4 (3.4-5.0) g/dl Globulin 4.0 gm/dL Albumin/Globulin Ratio 0.9 L (1-2) Vitamin D 25-Hydroxy 41.8 (30.0-100.0) ng/ml Blood Type 07/13/20 07/13/20 07/13/20 Range/Units 18:34 18:34 18:34 WBC (3.98-10.04) K/mm3 RBC (3.98-5.22) M/mm3 Hgb (11.2-15.7) gm/dl Hct (34.1-44.9) % MCV (79.4-94.8) fl MCH (25.6-32.2) pg MCHC (32.2-35.5) g/dl RDW Std Deviation (36.4-46.3) fL Plt Count (182-369) K/mm3 MPV (9.4-12.3) fl Neut % (Auto) (34.0-71.1) % Lymph % (Auto) (19.3-51.7) % [place] % (Auto) (4.7-12.5) % Eos % (Auto) (0.7-5.8) Baso % (Auto) (0.1-1.2) % Neut # (Auto) (1.56-6.13) K/mm3 Lymph # (Auto) (1.18-3.74) K/mm3 [place] # (Auto) (0.24-0.36) K/mm3 Eos # (Auto) (0.04-0.36) K/mm3 Baso # (Auto) (0.01-0.08) K/mm3 Manual Slide Review D-Dimer, Quantitative (0.19-0.50) mg/L Sodium (136-145) mEq/L Potassium (3.5-5.1) mEq/L Chloride (98-107) mEq/L Carbon Dioxide (21-32) mEq/L Anion Gap (5-15) BUN (7-18) mg/dL Creatinine (0.55-1.02) mg/dL Est Cr Clr Drug Dosing mL/min Estimated GFR (MDRD) (>60) mL/min BUN/Creatinine Ratio (14-18) Glucose (80-115) mg/dL Lactic Acid (0.4-2.0) mmol/L Calcium (8.5-10.1) mg/dL Phosphorus (2.6-4.7) mg/dL Magnesium (1.8-2.4) mg/dl Ferritin 643 H (8-252) ng/ml Total Bilirubin (0.2-1.0) mg/dL AST (15-37) U/L ALT (14-59) U/L Alkaline Phosphatase (46-116) U/L Lactate Dehydrogenase (81-234) U/L Troponin I (0.00-0.056) ng/mL C-Reactive Protein (<1.0) mg/dL NT-Pro-B Natriuret Pep 74 (0-125) pg/mL Total Protein (6.4-8.2) g/dl Albumin (3.4-5.0) g/dl Globulin gm/dL Albumin/Globulin Ratio (1-2) Vitamin D 25-Hydroxy (30.0-100.0) ng/ml Blood Type O POSITIVE 07/13/20 07/14/20 07/14/20 Range/Units 18:49 09:42 09:42 WBC 6.12 (3.98-10.04) K/mm3 RBC 4.29 (3.98-5.22) M/mm3 Hgb 13.5 (11.2-15.7) gm/dl Hct 39.9 (34.1-44.9) % MCV 93.0 (79.4-94.8) fl MCH 31.5 (25.6-32.2) pg MCHC 33.8 (32.2-35.5) g/dl RDW Std Deviation 43.2 (36.4-46.3) fL Plt Count 188 (182-369) K/mm3 MPV 9.1 L (9.4-12.3) fl Neut % (Auto) 87.0 H (34.0-71.1) % Lymph % (Auto) 9.2 L (19.3-51.7) % Burnett % (Auto) 3.1 L (4.7-12.5) % Eos % (Auto) 0.2 L (0.7-5.8) Baso % (Auto) 0.2 (0.1-1.2) % Neut # (Auto) 5.33 (1.56-6.13) K/mm3 Lymph # (Auto) 0.56 L (1.18-3.74) K/mm3 Burnett # (Auto) 0.19 L (0.24-0.36) K/mm3 Eos # (Auto) 0.01 L (0.04-0.36) K/mm3 Baso # (Auto) 0.01 (0.01-0.08) K/mm3 Manual Slide Review Normal smear D-Dimer, Quantitative 1.24 H (0.19-0.50) mg/L Sodium (136-145) mEq/L Potassium (3.5-5.1) mEq/L Chloride (98-107) mEq/L Carbon Dioxide (21-32) mEq/L Anion Gap (5-15) BUN (7-18) mg/dL Creatinine (0.55-1.02) mg/dL Est Cr Clr Drug Dosing mL/min Estimated GFR (MDRD) (>60) mL/min BUN/Creatinine Ratio (14-18) Glucose (80-115) mg/dL Lactic Acid 1.1 (0.4-2.0) mmol/L Calcium (8.5-10.1) mg/dL Phosphorus (2.6-4.7) mg/dL Magnesium (1.8-2.4) mg/dl Ferritin (8-252) ng/ml Total Bilirubin (0.2-1.0) mg/dL AST (15-37) U/L ALT (14-59) U/L Alkaline Phosphatase (46-116) U/L Lactate Dehydrogenase (81-234) U/L Troponin I (0.00-0.056) ng/mL C-Reactive Protein (<1.0) mg/dL NT-Pro-B Natriuret Pep (0-125) pg/mL Total Protein (6.4-8.2) g/dl Albumin (3.4-5.0) g/dl Globulin gm/dL Albumin/Globulin Ratio (1-2) Vitamin D 25-Hydroxy (30.0-100.0) ng/ml Blood Type 07/14/20 Range/Units 09:42 WBC (3.98-10.04) K/mm3 RBC (3.98-5.22) M/mm3 Hgb (11.2-15.7) gm/dl Hct (34.1-44.9) % MCV (79.4-94.8) fl MCH (25.6-32.2) pg MCHC (32.2-35.5) g/dl RDW Std Deviation (36.4-46.3) fL Plt Count (182-369) K/mm3 MPV (9.4-12.3) fl Neut % (Auto) (34.0-71.1) % Lymph % (Auto) (19.3-51.7) % Burnett % (Auto) (4.7-12.5) % Eos % (Auto) (0.7-5.8) Baso % (Auto) (0.1-1.2) % Neut # (Auto) (1.56-6.13) K/mm3 Lymph # (Auto) (1.18-3.74) K/mm3 Burnett # (Auto) (0.24-0.36) K/mm3 Eos # (Auto) (0.04-0.36) K/mm3 Baso # (Auto) (0.01-0.08) K/mm3 Manual Slide Review D-Dimer, Quantitative (0.19-0.50) mg/L Sodium 139 (136-145) mEq/L Potassium 3.7 (3.5-5.1) mEq/L Chloride 104 (98-107) mEq/L Carbon Dioxide 21 (21-32) mEq/L Anion Gap 17.7 H (5-15) BUN 11 (7-18) mg/dL Creatinine 0.9 (0.55-1.02) mg/dL Est Cr Clr Drug Dosing 45.14 mL/min Estimated GFR (MDRD) > 60 (>60) mL/min BUN/Creatinine Ratio 12.2 L (14-18) Glucose 133 H (80-115) mg/dL Lactic Acid (0.4-2.0) mmol/L Calcium 8.6 (8.5-10.1) mg/dL Phosphorus 2.2 L (2.6-4.7) mg/dL Magnesium 1.9 (1.8-2.4) mg/dl Ferritin (8-252) ng/ml Total Bilirubin 0.3 (0.2-1.0) mg/dL AST 73 H (15-37) U/L ALT 67 H (14-59) U/L Alkaline Phosphatase 72 (46-116) U/L Lactate Dehydrogenase (81-234) U/L Troponin I (0.00-0.056) ng/mL C-Reactive Protein 3.4 H* (<1.0) mg/dL NT-Pro-B Natriuret Pep (0-125) pg/mL Total Protein 7.0 (6.4-8.2) g/dl Albumin 3.2 L (3.4-5.0) g/dl Globulin 3.8 gm/dL Albumin/Globulin Ratio 0.8 L (1-2) Vitamin D 25-Hydroxy (30.0-100.0) ng/ml Blood Type Med Orders - Current: Current Medications Acetaminophen (Tylenol) 650 mg PO Q4H PRN PRN Reason: Pain (Mild 1-3)/fever Aspirin (Halfprin) 81 mg PO DAILY [facility] Last Admin: 07/14/20 08:33 Dose: 81 mg Documented by: Dexamethasone (Dexamethasone) 6 mg PO DAILY [facility] Stop: 07/23/20 09:01 Docusate Sodium (Colace) 100 mg PO BID PRN PRN Reason: Constipation Enoxaparin Sodium (Lovenox) 40 mg SUBCUT DAILY@2100 [facility] Last Admin: 07/13/20 21:00 Dose: 40 mg Documented by: Famotidine (Pepcid) 20 mg PO DAILY [facility] Furosemide (Lasix) 20 mg PO DAILY PRN PRN Reason: Edema Last Admin: 07/14/20 11:43 Dose: 20 mg Documented by: Remdesivir 100 mg/ Sodium (Chloride) 100 mls @ 100 mls/hr IV Q24H [facility] Stop: 07/17/20 20:59 Lisinopril (Prinivil) 10 mg PO DAILY [facility] Last Admin: 07/14/20 08:34 Dose: 10 mg Documented by: Magnesium Oxide (Magnesium Oxide) 400 mg PO DAILY [facility] Last Admin: 07/14/20 08:34 Dose: 400 mg Documented by: Ondansetron HCl (Zofran Odt) 4 mg PO Q6H PRN PRN Reason: nausea, able to take PO Oxycodone HCl (Oxycodone) 5 mg PO Q4H PRN PRN Reason: Pain (moderate 4-6) Rosuvastatin Calcium (Crestor) 20 mg PO DAILY [facility] Last Admin: 07/14/20 08:33 Dose: 20 mg Documented by: Temazepam (Restoril) 15 mg PO BEDTIME PRN PRN Reason: Sleep Last Admin: 07/14/20 01:04 Dose: 15 mg Documented by: Tramadol HCl (Ultram) 50 mg PO Q6H PRN PRN Reason: Pain Discontinued Medications Dexamethasone (Dexamethasone) 6 mg IV DAILY [facility] Last Admin: 07/14/20 09:31 Dose: 6 mg Documented by: Famotidine (Pepcid) 20 mg PO BID [facility] Last Admin: 07/14/20 08:34 Dose: 20 mg Documented by: Sodium Chloride (Normal Saline) 1,000 mls @ 75 mls/hr IV ASDIRECTED [facility] Last Admin: 07/14/20 08:55 Dose: 75 mls/hr Documented by: Remdesivir 200 mg/ Sodium (Chloride) 250 mls @ 250 mls/hr IV ONETIME ONE Stop: 07/13/20 20:59 Last Admin: 07/13/20 21:00 Dose: 250 mls/hr Documented by: Sodium Chloride (Normal Saline) Confirm Administered Dose 100 mls @ as directed .ROUTE .STK-MED ONE Stop: 07/13/20 21:59 Last Admin: 07/14/20 03:38 Dose: Not Given Documented by: Sepsis Event Note - Focused Exam Vital Signs: Vital Signs Temp Temp Pulse Pulse Resp BP BP 07/14/20 12:00 36.4 C 87 22 H 107/57 L 07/14/20 11:44 36.4 C 86 29 H 107/57 L 07/14/20 11:02 13 07/14/20 10:00 26 H 07/14/20 09:00 30 H 07/14/20 08:34 131/63 07/14/20 08:29 36.4 C 76 18 131/63 07/14/20 08:26 36.4 C 75 23 H 131/63 07/14/20 08:00 27 H 07/14/20 07:00 22 H 07/14/20 06:00 18 07/14/20 05:52 36.4 C 70 19 104/59 L 07/14/20 05:00 30 H 07/14/20 04:00 34 H Pulse Ox 07/14/20 12:00 95 07/14/20 11:44 94 L 07/14/20 11:02 07/14/20 10:00 07/14/20 09:00 07/14/20 08:34 07/14/20 08:29 91 L 07/14/20 08:26 91 L 07/14/20 08:00 07/14/20 07:00 07/14/20 06:00 07/14/20 05:52 93 L 07/14/20 05:00 07/14/20 04:00 - Problem List & Annotations (1) COVID-19 SNOMED Code(s): 674980520 Code(s): U07.1 - COVID-19 Status: Acute Priority: High Current Visit: Yes (2) Hypoxia SNOMED Code(s): 694826856 Code(s): R09.02 - HYPOXEMIA Status: Acute Priority: High Current Visit: Yes (3) Hypertension SNOMED Code(s): 11257624 Code(s): I10 - ESSENTIAL (PRIMARY) HYPERTENSION Status: Acute Current Visit: Yes Qualifiers: Hypertension type: unspecified Qualified Code(s): I10 - Essential (primary) hypertension (4) Coronary artery disease SNOMED Code(s): 62110936 Code(s): I25.10 - ATHSCL HEART DISEASE OF [place] CORONARY ARTERY W/O ANG PCTRS Status: Acute Current Visit: Yes Qualifiers: Coronary Disease-Associated Artery/Lesion type: unspecified vessel or lesion type Associated angina: angina presence unspecified (5) Chronic kidney disease, stage III (moderate) SNOMED Code(s): 090933989 Code(s): N18.30 - CHRONIC KIDNEY DISEASE, STAGE 3 UNSPECIFIED Status: Acute Current Visit: Yes Qualifiers: Chronic kidney disease stage 3 subtype: stage 3b (GFR 30-44) Qualified Code(s): N18.32 - Chronic kidney disease, stage 3b - My Orders Last 24 Hours: My Active Orders 07/13/20 17:57 Patient Status [ADT] Routine 07/13/20 18:13 Chest 1V Frontal [CR] Routine 07/13/20 18:17 Cardiac Monitoring [RC] CONTINUOUS Oxygen Therapy [RC] PRN Up ad Ly [RC] ASDIRECTED VTE/DVT Education [RC] BID Vital Signs [RC] Q4HR Acetaminophen [TylenoL] 650 mg PO Q4H PRN Docusate Sodium [Colace] 100 mg PO BID PRN Ondansetron [Zofran ODT] 4 mg PO Q6H PRN Temazepam [Restoril] 15 mg PO BEDTIME PRN oxyCODONE 5 mg PO Q4H PRN Resuscitation Status Routine 07/13/20 18:34 ABO/RH TYPE [BBK] Routine FRESH FROZEN PLASMA [BBK] Routine PROCALCITONIN [REF] Routine 07/13/20 19:11 Verify Patient Consent Obtain [RC] ASDIRECTED Transfuse Fresh Frozen Plasma [COMM] Routine 07/13/20 21:00 Enoxaparin [Lovenox] 40 mg SUBCUT DAILY@2100 07/14/20 Breakfast Heart Healthy Diet [DIET] 07/14/20 07:51 Furosemide [Lasix] 20 mg PO DAILY PRN traMADol [Ultram] 50 mg PO Q6H PRN 07/14/20 09:00 Aspirin [Halfprin] 81 mg PO DAILY Magnesium Oxide 400 mg PO DAILY Rosuvastatin [Crestor] 20 mg PO DAILY lisinopriL [Prinivil] 10 mg PO DAILY 07/14/20 20:00 Remdesivir (Eua) [Remdesivir (EUA)] 100 mg Sodium Chloride 0.9% [Normal Saline] 100 ml IV Q24H 07/15/20 09:00 Famotidine [Pepcid] 20 mg PO DAILY dexAMETHasone 6 mg PO DAILY - Plan Plan:: I have seen and examined the patient independent of nurse practitioner Maritza Jackson and I have discussed the case with her. I have reviewed and agree with the assessment and plan as outlined for this patient by her. Please see orders.
[2020-07-14] MEDS: Enoxaparin 40 MG/0.4 ML Syringe SUBCUT SCH (20:10)
[2020-07-14] MEDS: REMDESIVIR (EUA) 100 MG in Sodium Chloride 0.9% 100 ML IV SCH (20:10)
[2020-07-15] MEDS: Aspirin 81 MG Tab.EC PO SCH (10:04)
[2020-07-15] MEDS: Famotidine 20 MG Tab PO SCH (10:04)
[2020-07-15] MEDS: Rosuvastatin 10 MG Tab PO SCH (10:04)
[2020-07-15] MEDS: Magnesium Oxide 400 MG Tab PO SCH (10:04)
[2020-07-15] MEDS: Dexamethasone 4 MG Tab PO SCH (10:04)
[2020-07-15] MEDS: Lisinopril 10 MG Tab PO SCH (10:05)
[2020-07-15] MEDS: Ondansetron 4 MG Tab.DIS PO PRN (10:19)
[2020-07-15] MEDS: Furosemide 20 MG Tab PO PRN (11:32)
[2020-07-15] MEDS ORDERED: Furosemide 20 MG Tab PO ONE (11:37)
--- NOTE | 2020-07-15 12:57 | PCM.PN ---
<Jackson,DeAnn M - Last Filed: 07/15/20 12:57> - General Info Date of Service: 07/15/20 Admission Dx/Problem (Free Text): Admission Diagnosis/Problem Admission Diagnosis/Problem Hypoxia Subjective Update: Patient states that overall she is feeling well, however she states that her nausea has returned. And that her appetite has decreased. Functional Status: Reports: Pain Controlled, Incentive Spirometry. Denies: Tolerating Diet (Increased nausea) - Review of Systems General: Denies: Appetite (Poor) HEENT: Reports: No Symptoms Pulmonary: Reports: Cough. Denies: Sputum (Scant amount of sputum) Cardiovascular: Reports: Edema (Bilateral lower extremities) Gastrointestinal: Reports: Decreased Appetite, Nausea Genitourinary: Reports: No Symptoms Musculoskeletal: Reports: No Symptoms Skin: Reports: No Symptoms Neurological: Reports: No Symptoms Psychiatric: Reports: No Symptoms - Patient Data Vitals - Most Recent: Last Vital Signs Temp 98.1 F 07/15/20 11:30 Pulse 78 07/15/20 11:30 Resp 15 07/15/20 12:00 BP 110/72 07/15/20 11:30 Pulse Ox 94 L 07/15/20 11:30 Weight - Most Recent: 66.542 kg I&O - Last 24 Hours: Intake & Output 07/14/20 07/15/20 07/15/20 22:59 06:59 14:59 Intake Total 220 500 Output Total 1750 800 Balance -1530 -300 Lab Results Last 24 Hours: Laboratory Results - last 24 hr 07/13/20 07/15/20 07/15/20 Range/Units 18:34 09:25 09:25 WBC 7.66 (3.98-10.04) K/mm3 RBC 4.65 (3.98-5.22) M/mm3 Hgb 14.5 (11.2-15.7) gm/dl Hct 43.4 (34.1-44.9) % MCV 93.3 (79.4-94.8) fl MCH 31.2 (25.6-32.2) pg MCHC 33.4 (32.2-35.5) g/dl RDW Std Deviation 44.4 (36.4-46.3) fL Plt Count 283 D (182-369) K/mm3 MPV 9.2 L (9.4-12.3) fl Neut % (Auto) 85.7 H (34.0-71.1) % Lymph % (Auto) 10.3 L (19.3-51.7) % [place] % (Auto) 3.5 L (4.7-12.5) % Eos % (Auto) 0 L (0.7-5.8) Baso % (Auto) 0.1 (0.1-1.2) % Neut # (Auto) 6.56 H (1.56-6.13) K/mm3 Lymph # (Auto) 0.79 L (1.18-3.74) K/mm3 [place] # (Auto) 0.27 (0.24-0.36) K/mm3 Eos # (Auto) 0.00 L (0.04-0.36) K/mm3 Baso # (Auto) 0.01 (0.01-0.08) K/mm3 Manual Slide Review Normal smear D-Dimer, Quantitative 1.10 H (0.19-0.50) mg/L Sodium (136-145) mEq/L Potassium (3.5-5.1) mEq/L Chloride (98-107) mEq/L Carbon Dioxide (21-32) mEq/L Anion Gap (5-15) BUN (7-18) mg/dL Creatinine (0.55-1.02) mg/dL Est Cr Clr Drug Dosing mL/min Estimated GFR (MDRD) (>60) mL/min BUN/Creatinine Ratio (14-18) Glucose (80-115) mg/dL Calcium (8.5-10.1) mg/dL Phosphorus (2.6-4.7) mg/dL Magnesium (1.8-2.4) mg/dl Total Bilirubin (0.2-1.0) mg/dL AST (15-37) U/L ALT (14-59) U/L Alkaline Phosphatase (46-116) U/L C-Reactive Protein (<1.0) mg/dL Total Protein (6.4-8.2) g/dl Albumin (3.4-5.0) g/dl Globulin gm/dL Albumin/Globulin Ratio (1-2) Procalcitonin <0.05 (<0.10) ng/mL 07/15/20 Range/Units 09:25 WBC (3.98-10.04) K/mm3 RBC (3.98-5.22) M/mm3 Hgb (11.2-15.7) gm/dl Hct (34.1-44.9) % MCV (79.4-94.8) fl MCH (25.6-32.2) pg MCHC (32.2-35.5) g/dl RDW Std Deviation (36.4-46.3) fL Plt Count (182-369) K/mm3 MPV (9.4-12.3) fl Neut % (Auto) (34.0-71.1) % Lymph % (Auto) (19.3-51.7) % [place] % (Auto) (4.7-12.5) % Eos % (Auto) (0.7-5.8) Baso % (Auto) (0.1-1.2) % Neut # (Auto) (1.56-6.13) K/mm3 Lymph # (Auto) (1.18-3.74) K/mm3 [place] # (Auto) (0.24-0.36) K/mm3 Eos # (Auto) (0.04-0.36) K/mm3 Baso # (Auto) (0.01-0.08) K/mm3 Manual Slide Review D-Dimer, Quantitative (0.19-0.50) mg/L Sodium 141 (136-145) mEq/L Potassium 3.5 (3.5-5.1) mEq/L Chloride 104 (98-107) mEq/L Carbon Dioxide 23 (21-32) mEq/L Anion Gap 17.5 H (5-15) BUN 16 (7-18) mg/dL Creatinine 1.1 H (0.55-1.02) mg/dL Est Cr Clr Drug Dosing 36.94 mL/min Estimated GFR (MDRD) 49 (>60) mL/min BUN/Creatinine Ratio 14.5 (14-18) Glucose 141 H (80-115) mg/dL Calcium 8.9 (8.5-10.1) mg/dL Phosphorus 2.4 L (2.6-4.7) mg/dL Magnesium 1.9 (1.8-2.4) mg/dl Total Bilirubin 0.3 (0.2-1.0) mg/dL AST 63 H (15-37) U/L ALT 75 H (14-59) U/L Alkaline Phosphatase 78 (46-116) U/L C-Reactive Protein 2.4 H* (<1.0) mg/dL Total Protein 7.5 (6.4-8.2) g/dl Albumin 3.4 (3.4-5.0) g/dl Globulin 4.1 gm/dL Albumin/Globulin Ratio 0.8 L (1-2) Procalcitonin (<0.10) ng/mL Med Orders - Current: Current Medications Acetaminophen (Tylenol) 650 mg PO Q4H PRN PRN Reason: Pain (Mild 1-3)/fever Aspirin (Halfprin) 81 mg PO DAILY [facility] Last Admin: 07/15/20 10:04 Dose: 81 mg Documented by: Dexamethasone (Dexamethasone) 6 mg PO DAILY [facility] Stop: 07/23/20 09:01 Last Admin: 07/15/20 10:04 Dose: 6 mg Documented by: Docusate Sodium (Colace) 100 mg PO BID PRN PRN Reason: Constipation Enoxaparin Sodium (Lovenox) 40 mg SUBCUT DAILY@2100 [facility] Last Admin: 07/14/20 20:10 Dose: 40 mg Documented by: Famotidine (Pepcid) 20 mg PO DAILY [facility] Last Admin: 07/15/20 10:04 Dose: 20 mg Documented by: Furosemide (Lasix) 20 mg PO DAILY PRN PRN Reason: Edema Last Admin: 07/15/20 11:32 Dose: 20 mg Documented by: Remdesivir 100 mg/ Sodium (Chloride) 100 mls @ 100 mls/hr IV Q24H [facility] Stop: 07/17/20 20:59 Last Admin: 07/14/20 20:10 Dose: 100 mls/hr Documented by: Lisinopril (Prinivil) 10 mg PO DAILY [facility] Last Admin: 07/15/20 10:05 Dose: 10 mg Documented by: Magnesium Oxide (Magnesium Oxide) 400 mg PO DAILY [facility] Last Admin: 07/15/20 10:04 Dose: 400 mg Documented by: Ondansetron HCl (Zofran Odt) 4 mg PO Q4H PRN PRN Reason: Nausea/Vomiting Last Admin: 07/15/20 10:19 Dose: 4 mg Documented by: Oxycodone HCl (Oxycodone) 5 mg PO Q4H PRN PRN Reason: Pain (moderate 4-6) Rosuvastatin Calcium (Crestor) 20 mg PO DAILY [facility] Last Admin: 07/15/20 10:04 Dose: 20 mg Documented by: Temazepam (Restoril) 15 mg PO BEDTIME PRN PRN Reason: Sleep Last Admin: 07/14/20 01:04 Dose: 15 mg Documented by: Tramadol HCl (Ultram) 50 mg PO Q6H PRN PRN Reason: Pain Discontinued Medications Dexamethasone (Dexamethasone) 6 mg IV DAILY [facility] Last Admin: 07/14/20 09:31 Dose: 6 mg Documented by: Famotidine (Pepcid) 20 mg PO BID [facility] Last Admin: 07/14/20 08:34 Dose: 20 mg Documented by: Furosemide (Lasix) 20 mg PO ONETIME ONE Stop: 07/15/20 11:38 Last Admin: 07/15/20 12:01 Dose: Not Given Documented by: Sodium Chloride (Normal Saline) 1,000 mls @ 75 mls/hr IV ASDIRECTED [facility] Last Admin: 07/14/20 08:55 Dose: 75 mls/hr Documented by: Remdesivir 200 mg/ Sodium (Chloride) 250 mls @ 250 mls/hr IV ONETIME ONE Stop: 07/13/20 20:59 Last Admin: 07/13/20 21:00 Dose: 250 mls/hr Documented by: Sodium Chloride (Normal Saline) Confirm Administered Dose 100 mls @ as directed .ROUTE .STK-MED ONE Stop: 07/13/20 21:59 Last Admin: 07/14/20 03:38 Dose: Not Given Documented by: Ondansetron HCl (Zofran Odt) 4 mg PO Q6H PRN PRN Reason: nausea, able to take PO Last Admin: 07/15/20 05:33 Dose: 4 mg Documented by: - Exam Quality Assessment: DVT Prophylaxis (Lovenox). No: Supplemental Oxygen General: Alert, Oriented, Cooperative, No Acute Distress HEENT: Pupils Equal, Pupils Reactive, Mucous Membr. Moist/[place] Neck: Supple, Trachea Midline. No: Lymphadenopathy Lungs: Crackles (Fine crackles to the bilateral bases) Cardiovascular: Regular Rate, Regular Rhythm, No Murmurs GI/Abdominal Exam: Normal Bowel Sounds, Soft, Non-Tender, No Distention (Female) Exam: Deferred Back Exam: Normal Inspection, Full Range of Motion Extremities: Normal Inspection, Normal Range of Motion, Non-Tender, Normal Capillary Refill, Pedal Edema (Patient states that this is normal for her. Her Lasix dose is scheduled as as needed. However she states that at home she has started taking it daily. I have also ordered LUCITA stockings for her.) Peripheral Pulses: 2+: Radial (L), Radial (R), Dorsalis Pedis (L), Dorsalis Pedis (R) Skin: Warm, Dry, Intact Neurological: No New Focal Deficit Psy/Mental Status: Alert, Normal Affect, Normal Mood Sepsis Event Note - Evaluation Sepsis Screening Result: No Definite Risk - Focused Exam Vital Signs: Vital Signs Temp Temp Pulse Pulse Resp BP BP 07/15/20 12:00 15 07/15/20 11:30 98.1 F 78 18 110/72 07/15/20 11:00 25 H 07/15/20 10:05 110/92 H 07/15/20 10:00 31 H 07/15/20 09:00 14 07/15/20 08:00 97.8 F 71 22 H 103/60 07/15/20 07:57 97.9 F 71 16 103/60 07/15/20 07:19 97.7 F 74 27 H 110/92 H 07/15/20 07:00 27 H 07/15/20 06:00 28 H 07/15/20 05:00 23 H 07/15/20 04:36 98.1 F 75 20 104/50 L 07/15/20 04:00 26 H 07/15/20 03:00 28 H 07/15/20 02:00 28 H 07/15/20 01:00 29 H Pulse Ox 07/15/20 12:00 07/15/20 11:30 94 L 07/15/20 11:00 07/15/20 10:05 07/15/20 10:00 07/15/20 09:00 07/15/20 08:00 93 L 07/15/20 07:57 93 L 07/15/20 07:19 92 L 07/15/20 07:00 07/15/20 06:00 07/15/20 05:00 07/15/20 04:36 93 L 07/15/20 04:00 07/15/20 03:00 07/15/20 02:00 07/15/20 01:00 - Problem List & Annotations (1) COVID-19 SNOMED Code(s): 825424603 Code(s): U07.1 - COVID-19 Status: Acute Priority: High Current Visit: Yes (2) Chronic kidney disease, stage III (moderate) SNOMED Code(s): 070412837 Code(s): N18.30 - CHRONIC KIDNEY DISEASE, STAGE 3 UNSPECIFIED Status: Acute Current Visit: Yes Qualifiers: Chronic kidney disease stage 3 subtype: stage 3b (GFR 30-44) Qualified Code(s): N18.32 - Chronic kidney disease, stage 3b (3) Coronary artery disease SNOMED Code(s): 21978261 Code(s): I25.10 - ATHSCL HEART DISEASE OF [place] CORONARY ARTERY W/O ANG PCTRS Status: Acute Current Visit: Yes Qualifiers: Coronary Disease-Associated Artery/Lesion type: unspecified vessel or lesion type Associated angina: angina presence unspecified (4) Hypertension SNOMED Code(s): 68320804 Code(s): I10 - ESSENTIAL (PRIMARY) HYPERTENSION Status: Acute Current Visit: Yes Qualifiers: Hypertension type: unspecified Qualified Code(s): I10 - Essential (primary) hypertension (5) Hypoxia SNOMED Code(s): 720044524 Code(s): R09.02 - HYPOXEMIA Status: Acute Priority: High Current Visit: Yes - Problem List Review Problem List Initiated/Reviewed/Updated: Yes - My Orders Last 24 Hours: My Active Orders 07/15/20 10:14 Ondansetron [Zofran ODT] 4 mg PO Q4H PRN 07/15/20 10:21 Antiembolic Devices [RC] PER UNIT ROUTINE LUCITA Hose [Antiembolic Hose] [OM.PC] Routine 07/16/20 09:15 C-REACTIVE PROTEIN [CHEM] DAILY CBC WITH AUTO DIFF [HEME] DAILY COMPREHENSIVE METABOLIC PN,CMP [CHEM] DAILY D-DIMER QUANTITATIVE [COAG] DAILY MAGNESIUM [CHEM] DAILY PHOSPHORUS [CHEM] DAILY 07/17/20 09:15 C-REACTIVE PROTEIN [CHEM] DAILY CBC WITH AUTO DIFF [HEME] DAILY COMPREHENSIVE METABOLIC PN,CMP [CHEM] DAILY D-DIMER QUANTITATIVE [COAG] DAILY MAGNESIUM [CHEM] DAILY PHOSPHORUS [CHEM] DAILY 07/18/20 09:15 C-REACTIVE PROTEIN [CHEM] DAILY CBC WITH AUTO DIFF [HEME] DAILY COMPREHENSIVE METABOLIC PN,CMP [CHEM] DAILY D-DIMER QUANTITATIVE [COAG] DAILY MAGNESIUM [CHEM] DAILY PHOSPHORUS [CHEM] DAILY - Assessment Assessment:: 07/14/20 The patient is no longer on oxygen supplementation. Remdesivir and dexamethasone day 2. Has received 2 units of convalescent plasma. Appetite is returning and is drinking well. Vital signs are stable. CBC unremarkable D-dimer is 1.24 from 1.54. Sodium 139 from 135 Potassium 3.7 from 4.1 BUN 11 Creatinine 0.9 C-reactive protein 3.4 from 5.0 07/15/20 The patient is on room air. She is using her incentive spirometer. Remdesivir and dexamethasone day 3. Has received 2 units of convalescent plasma. Appetite is decreased and she is more nauseated today Vital signs are stable. CBC unremarkable Potassium 3.5 BUN 16 Creatinine 1.1 GFR 49 magnesium 1.9 C-reactive protein 2.4 - Plan Plan:: 07/14/20 Continue remdesivir and dexamethasone day 2 Repeat labs as needed Discontinue IV fluids Give patient's home dose of 20 mg of Lasix Incentive spirometer Monitor for hypoxia Encourage ambulation in room Increase p.o. intake At this time the patient will remain admitted for antiviral treatment for Covid. She will be here at least 3 more days. Continue Lovenox for DVT prophylaxis. 07/15/20 Continue remdesivir and dexamethasone day 3 Repeat labs as needed Push p.o. fluids. Give patient's home dose of 20 mg of Lasix Incentive spirometer Monitor for hypoxia Encourage ambulation in room LUCITA hose At this time the patient will remain admitted for antiviral treatment for Covid. She will be here at least 2 more days. Continue Lovenox for DVT prophylaxis. <Nate Yadav - Last Filed: 07/15/20 17:53> - Patient Data Vitals - Most Recent: Last Vital Signs Temp 36.5 C 07/15/20 15:34 Pulse 80 07/15/20 15:34 Resp 23 H 07/15/20 16:00 BP 112/55 L 07/15/20 15:34 Pulse Ox 94 L 07/15/20 17:08 I&O - Last 24 Hours: Intake & Output 07/15/20 07/15/20 07/15/20 06:59 14:59 22:59 Intake Total 708 074 3505 Output Total 800 1400 Balance -300 240 -302 Lab Results Last 24 Hours: Laboratory Results - last 24 hr 07/13/20 07/15/20 07/15/20 Range/Units 18:34 09:25 09:25 WBC 7.66 (3.98-10.04) K/mm3 RBC 4.65 (3.98-5.22) M/mm3 Hgb 14.5 (11.2-15.7) gm/dl Hct 43.4 (34.1-44.9) % MCV 93.3 (79.4-94.8) fl MCH 31.2 (25.6-32.2) pg MCHC 33.4 (32.2-35.5) g/dl RDW Std Deviation 44.4 (36.4-46.3) fL Plt Count 283 D (182-369) K/mm3 MPV 9.2 L (9.4-12.3) fl Neut % (Auto) 85.7 H (34.0-71.1) % Lymph % (Auto) 10.3 L (19.3-51.7) % [place] % (Auto) 3.5 L (4.7-12.5) % Eos % (Auto) 0 L (0.7-5.8) Baso % (Auto) 0.1 (0.1-1.2) % Neut # (Auto) 6.56 H (1.56-6.13) K/mm3 Lymph # (Auto) 0.79 L (1.18-3.74) K/mm3 [place] # (Auto) 0.27 (0.24-0.36) K/mm3 Eos # (Auto) 0.00 L (0.04-0.36) K/mm3 Baso # (Auto) 0.01 (0.01-0.08) K/mm3 Manual Slide Review Normal smear D-Dimer, Quantitative 1.10 H (0.19-0.50) mg/L Sodium (136-145) mEq/L Potassium (3.5-5.1) mEq/L Chloride (98-107) mEq/L Carbon Dioxide (21-32) mEq/L Anion Gap (5-15) BUN (7-18) mg/dL Creatinine (0.55-1.02) mg/dL Est Cr Clr Drug Dosing mL/min Estimated GFR (MDRD) (>60) mL/min BUN/Creatinine Ratio (14-18) Glucose (80-115) mg/dL Calcium (8.5-10.1) mg/dL Phosphorus (2.6-4.7) mg/dL Magnesium (1.8-2.4) mg/dl Total Bilirubin (0.2-1.0) mg/dL AST (15-37) U/L ALT (14-59) U/L Alkaline Phosphatase (46-116) U/L C-Reactive Protein (<1.0) mg/dL Total Protein (6.4-8.2) g/dl Albumin (3.4-5.0) g/dl Globulin gm/dL Albumin/Globulin Ratio (1-2) Procalcitonin <0.05 (<0.10) ng/mL 07/15/20 Range/Units 09:25 WBC (3.98-10.04) K/mm3 RBC (3.98-5.22) M/mm3 Hgb (11.2-15.7) gm/dl Hct (34.1-44.9) % MCV (79.4-94.8) fl MCH (25.6-32.2) pg MCHC (32.2-35.5) g/dl RDW Std Deviation (36.4-46.3) fL Plt Count (182-369) K/mm3 MPV (9.4-12.3) fl Neut % (Auto) (34.0-71.1) % Lymph % (Auto) (19.3-51.7) % [place] % (Auto) (4.7-12.5) % Eos % (Auto) (0.7-5.8) Baso % (Auto) (0.1-1.2) % Neut # (Auto) (1.56-6.13) K/mm3 Lymph # (Auto) (1.18-3.74) K/mm3 [place] # (Auto) (0.24-0.36) K/mm3 Eos # (Auto) (0.04-0.36) K/mm3 Baso # (Auto) (0.01-0.08) K/mm3 Manual Slide Review D-Dimer, Quantitative (0.19-0.50) mg/L Sodium 141 (136-145) mEq/L Potassium 3.5 (3.5-5.1) mEq/L Chloride 104 (98-107) mEq/L Carbon Dioxide 23 (21-32) mEq/L Anion Gap 17.5 H (5-15) BUN 16 (7-18) mg/dL Creatinine 1.1 H (0.55-1.02) mg/dL Est Cr Clr Drug Dosing 36.94 mL/min Estimated GFR (MDRD) 49 (>60) mL/min BUN/Creatinine Ratio 14.5 (14-18) Glucose 141 H (80-115) mg/dL Calcium 8.9 (8.5-10.1) mg/dL Phosphorus 2.4 L (2.6-4.7) mg/dL Magnesium 1.9 (1.8-2.4) mg/dl Total Bilirubin 0.3 (0.2-1.0) mg/dL AST 63 H (15-37) U/L ALT 75 H (14-59) U/L Alkaline Phosphatase 78 (46-116) U/L C-Reactive Protein 2.4 H* (<1.0) mg/dL Total Protein 7.5 (6.4-8.2) g/dl Albumin 3.4 (3.4-5.0) g/dl Globulin 4.1 gm/dL Albumin/Globulin Ratio 0.8 L (1-2) Procalcitonin (<0.10) ng/mL Med Orders - Current: Current Medications Acetaminophen (Tylenol) 650 mg PO Q4H PRN PRN Reason: Pain (Mild 1-3)/fever Aspirin (Halfprin) 81 mg PO DAILY [facility] Last Admin: 07/15/20 10:04 Dose: 81 mg Documented by: Dexamethasone (Dexamethasone) 6 mg PO DAILY [facility] Stop: 07/23/20 09:01 Last Admin: 07/15/20 10:04 Dose: 6 mg Documented by: Docusate Sodium (Colace) 100 mg PO BID PRN PRN Reason: Constipation Enoxaparin Sodium (Lovenox) 40 mg SUBCUT DAILY@2100 [facility] Last Admin: 07/14/20 20:10 Dose: 40 mg Documented by: Famotidine (Pepcid) 20 mg PO DAILY [facility] Last Admin: 07/15/20 10:04 Dose: 20 mg Documented by: Furosemide (Lasix) 20 mg PO DAILY PRN PRN Reason: Edema Last Admin: 07/15/20 11:32 Dose: 20 mg Documented by: Remdesivir 100 mg/ Sodium (Chloride) 100 mls @ 100 mls/hr IV Q24H [facility] Stop: 07/17/20 20:59 Last Admin: 07/14/20 20:10 Dose: 100 mls/hr Documented by: Lisinopril (Prinivil) 10 mg PO DAILY [facility] Last Admin: 07/15/20 10:05 Dose: 10 mg Documented by: Magnesium Oxide (Magnesium Oxide) 400 mg PO DAILY [facility] Last Admin: 07/15/20 10:04 Dose: 400 mg Documented by: Ondansetron HCl (Zofran Odt) 4 mg PO Q4H PRN PRN Reason: Nausea/Vomiting Last Admin: 07/15/20 10:19 Dose: 4 mg Documented by: Oxycodone HCl (Oxycodone) 5 mg PO Q4H PRN PRN Reason: Pain (moderate 4-6) Rosuvastatin Calcium (Crestor) 20 mg PO DAILY [facility] Last Admin: 07/15/20 10:04 Dose: 20 mg Documented by: Temazepam (Restoril) 15 mg PO BEDTIME PRN PRN Reason: Sleep Last Admin: 07/14/20 01:04 Dose: 15 mg Documented by: Tramadol HCl (Ultram) 50 mg PO Q6H PRN PRN Reason: Pain Discontinued Medications Dexamethasone (Dexamethasone) 6 mg IV DAILY [facility] Last Admin: 07/14/20 09:31 Dose: 6 mg Documented by: Famotidine (Pepcid) 20 mg PO BID [facility] Last Admin: 07/14/20 08:34 Dose: 20 mg Documented by: Furosemide (Lasix) 20 mg PO ONETIME ONE Stop: 07/15/20 11:38 Last Admin: 07/15/20 12:01 Dose: Not Given Documented by: Sodium Chloride (Normal Saline) 1,000 mls @ 75 mls/hr IV ASDIRECTED [facility] Last Admin: 07/14/20 08:55 Dose: 75 mls/hr Documented by: Remdesivir 200 mg/ Sodium (Chloride) 250 mls @ 250 mls/hr IV ONETIME ONE Stop: 07/13/20 20:59 Last Admin: 07/13/20 21:00 Dose: 250 mls/hr Documented by: Sodium Chloride (Normal Saline) Confirm Administered Dose 100 mls @ as directed .ROUTE .STK-MED ONE Stop: 07/13/20 21:59 Last Admin: 07/14/20 03:38 Dose: Not Given Documented by: Ondansetron HCl (Zofran Odt) 4 mg PO Q6H PRN PRN Reason: nausea, able to take PO Last Admin: 07/15/20 05:33 Dose: 4 mg Documented by: Sepsis Event Note - Focused Exam Vital Signs: Vital Signs Temp Temp Pulse Pulse Resp BP BP 07/15/20 17:08 07/15/20 16:00 23 H 07/15/20 15:34 36.5 C 80 16 112/55 L 07/15/20 15:00 30 H 07/15/20 14:00 34 H 07/15/20 13:00 13 07/15/20 12:00 15 07/15/20 11:30 36.7 C 78 18 110/72 07/15/20 11:00 25 H 07/15/20 10:05 110/92 H 07/15/20 10:00 31 H 07/15/20 09:00 14 07/15/20 08:00 36.6 C 71 22 H 103/60 07/15/20 07:57 36.6 C 71 16 103/60 07/15/20 07:19 36.5 C 74 27 H 110/92 H 07/15/20 07:00 27 H 07/15/20 06:00 28 H Pulse Ox Pulse Ox 07/15/20 17:08 94 L 07/15/20 16:00 07/15/20 15:34 99 07/15/20 15:00 07/15/20 14:00 07/15/20 13:00 07/15/20 12:00 07/15/20 11:30 94 L 07/15/20 11:00 07/15/20 10:05 07/15/20 10:00 07/15/20 09:00 07/15/20 08:00 93 L 07/15/20 07:57 93 L 07/15/20 07:19 92 L 07/15/20 07:00 07/15/20 06:00 - Problem List & Annotations (1) COVID-19 SNOMED Code(s): 381975148 Code(s): U07.1 - COVID-19 Status: Acute Priority: High Current Visit: Yes (2) Hypoxia SNOMED Code(s): 168995553 Code(s): R09.02 - HYPOXEMIA Status: Acute Priority: High Current Visit: Yes (3) Hypertension SNOMED Code(s): 59885329 Code(s): I10 - ESSENTIAL (PRIMARY) HYPERTENSION Status: Acute Current Visit: Yes Qualifiers: Hypertension type: unspecified Qualified Code(s): I10 - Essential (primary) hypertension (4) Coronary artery disease SNOMED Code(s): 60950715 Code(s): I25.10 - ATHSCL HEART DISEASE OF [place] CORONARY ARTERY W/O ANG PCTRS Status: Acute Current Visit: Yes Qualifiers: Coronary Disease-Associated Artery/Lesion type: unspecified vessel or lesion type Associated angina: angina presence unspecified (5) Chronic kidney disease, stage III (moderate) SNOMED Code(s): 793547523 Code(s): N18.30 - CHRONIC KIDNEY DISEASE, STAGE 3 UNSPECIFIED Status: Acute Current Visit: Yes Qualifiers: Chronic kidney disease stage 3 subtype: stage 3b (GFR 30-44) Qualified Code(s): N18.32 - Chronic kidney disease, stage 3b - My Orders Last 24 Hours: My Active Orders 07/14/20 20:00 Remdesivir (Eua) [Remdesivir (EUA)] 100 mg Sodium Chloride 0.9% [Normal Saline] 100 ml IV Q24H 07/15/20 09:00 Famotidine [Pepcid] 20 mg PO DAILY dexAMETHasone 6 mg PO DAILY - Plan Plan:: I have seen and examined the patient independent of nurse practitioner Maritza Jackson and I have discussed the case with her. I have reviewed and agree with the assessment and plan as outlined for this patient by her. Please see orders.
[2020-07-15] MEDS: Enoxaparin 40 MG/0.4 ML Syringe SUBCUT SCH (20:10)
[2020-07-15] MEDS: REMDESIVIR (EUA) 100 MG in Sodium Chloride 0.9% 100 ML IV SCH (20:11)
[2020-07-16] MEDS: Ondansetron 4 MG Tab.DIS PO PRN (07:37)
[2020-07-16] MEDS: Rosuvastatin 10 MG Tab PO SCH (09:26)
[2020-07-16] MEDS: Famotidine 20 MG Tab PO SCH (09:26)
[2020-07-16] MEDS: Lisinopril 10 MG Tab PO SCH (09:27)
[2020-07-16] MEDS: Dexamethasone 4 MG Tab PO SCH (09:27)
[2020-07-16] MEDS: Aspirin 81 MG Tab.EC PO SCH (09:27)
[2020-07-16] MEDS: Magnesium Oxide 400 MG Tab PO SCH (09:28)
[2020-07-16] MEDS: Potassium Chloride 20 MEQ Tab.ER PO SCH ×3 (10:13→17:27)
[2020-07-16] MEDS: Furosemide 20 MG Tab PO PRN (13:01)
--- NOTE | 2020-07-16 13:58 | PCM.PN ---
<RenettaMaritza M - Last Filed: 07/16/20 13:59> - General Info Date of Service: 07/16/20 Admission Dx/Problem (Free Text): Admission Diagnosis/Problem Admission Diagnosis/Problem Hypoxia Subjective Update: Doing well other than having complaints of nausea when attempting to eat. Remains on room air. Functional Status: Reports: Pain Controlled, Tolerating Diet, Ambulating, Urinating, Incentive Spirometry - Review of Systems General: Reports: No Symptoms HEENT: Reports: No Symptoms Pulmonary: Reports: No Symptoms Cardiovascular: Reports: Edema (Bilateral lower extremities) Gastrointestinal: Reports: Nausea Genitourinary: Reports: No Symptoms Musculoskeletal: Reports: No Symptoms Skin: Reports: No Symptoms Neurological: Reports: No Symptoms Psychiatric: Reports: No Symptoms - Patient Data Vitals - Most Recent: Last Vital Signs Temp 97.7 F 07/16/20 13:05 Pulse 78 07/16/20 13:05 Resp 18 07/16/20 13:05 BP 113/71 07/16/20 13:05 Pulse Ox 95 07/16/20 13:05 Weight - Most Recent: 66.769 kg I&O - Last 24 Hours: Intake & Output 07/15/20 07/16/20 07/16/20 22:59 06:59 14:59 Intake Total 1318 250 360 Output Total 1400 300 Balance -82 -50 360 Lab Results Last 24 Hours: Laboratory Results - last 24 hr 07/16/20 07/16/20 07/16/20 Range/Units 09:00 09:00 09:00 WBC 7.61 (3.98-10.04) K/mm3 RBC 4.42 (3.98-5.22) M/mm3 Hgb 14.0 (11.2-15.7) gm/dl Hct 41.2 (34.1-44.9) % MCV 93.2 (79.4-94.8) fl MCH 31.7 (25.6-32.2) pg MCHC 34.0 (32.2-35.5) g/dl RDW Std Deviation 44.1 (36.4-46.3) fL Plt Count 310 (182-369) K/mm3 MPV 9.1 L (9.4-12.3) fl Neut % (Auto) 80.2 H (34.0-71.1) % Lymph % (Auto) 12.5 L (19.3-51.7) % [place] % (Auto) 6.8 (4.7-12.5) % Eos % (Auto) 0 L (0.7-5.8) Baso % (Auto) 0.1 (0.1-1.2) % Neut # (Auto) 6.10 (1.56-6.13) K/mm3 Lymph # (Auto) 0.95 L (1.18-3.74) K/mm3 [place] # (Auto) 0.52 H (0.24-0.36) K/mm3 Eos # (Auto) 0.00 L (0.04-0.36) K/mm3 Baso # (Auto) 0.01 (0.01-0.08) K/mm3 Manual Slide Review Normal smear D-Dimer, Quantitative 1.01 H (0.19-0.50) mg/L Sodium 141 (136-145) mEq/L Potassium 3.1 L (3.5-5.1) mEq/L Chloride 104 (98-107) mEq/L Carbon Dioxide 24 (21-32) mEq/L Anion Gap 16.1 H (5-15) BUN 17 (7-18) mg/dL Creatinine 1.1 H (0.55-1.02) mg/dL Est Cr Clr Drug Dosing 36.94 mL/min Estimated GFR (MDRD) 49 (>60) mL/min BUN/Creatinine Ratio 15.5 (14-18) Glucose 137 H (80-115) mg/dL Calcium 8.6 (8.5-10.1) mg/dL Magnesium 1.9 (1.8-2.4) mg/dl Total Bilirubin 0.3 (0.2-1.0) mg/dL AST 37 (15-37) U/L ALT 54 (14-59) U/L Alkaline Phosphatase 70 (46-116) U/L C-Reactive Protein 1.8 H* (<1.0) mg/dL Total Protein 6.8 (6.4-8.2) g/dl Albumin 3.0 L (3.4-5.0) g/dl Globulin 3.8 gm/dL Albumin/Globulin Ratio 0.8 L (1-2) Med Orders - Current: Current Medications Acetaminophen (Tylenol) 650 mg PO Q4H PRN PRN Reason: Pain (Mild 1-3)/fever Aspirin (Halfprin) 81 mg PO DAILY [facility] Last Admin: 07/16/20 09:27 Dose: 81 mg Documented by: Dexamethasone (Dexamethasone) 6 mg PO DAILY [facility] Stop: 07/23/20 09:01 Last Admin: 07/16/20 09:27 Dose: 6 mg Documented by: Docusate Sodium (Colace) 100 mg PO BID PRN PRN Reason: Constipation Enoxaparin Sodium (Lovenox) 40 mg SUBCUT DAILY@2100 [facility] Last Admin: 07/15/20 20:10 Dose: 40 mg Documented by: Famotidine (Pepcid) 20 mg PO DAILY [facility] Last Admin: 07/16/20 09:26 Dose: 20 mg Documented by: Furosemide (Lasix) 20 mg PO DAILY PRN PRN Reason: Edema Last Admin: 07/16/20 13:01 Dose: 20 mg Documented by: Remdesivir 100 mg/ Sodium (Chloride) 100 mls @ 100 mls/hr IV Q24H [facility] Stop: 07/17/20 20:59 Last Admin: 07/15/20 20:11 Dose: 100 mls/hr Documented by: Lisinopril (Prinivil) 10 mg PO DAILY [facility] Last Admin: 07/16/20 09:27 Dose: 10 mg Documented by: Magnesium Oxide (Magnesium Oxide) 400 mg PO DAILY [facility] Last Admin: 07/16/20 09:28 Dose: 400 mg Documented by: Ondansetron HCl (Zofran Odt) 4 mg PO Q4H PRN PRN Reason: Nausea/Vomiting Last Admin: 07/16/20 07:37 Dose: 4 mg Documented by: Oxycodone HCl (Oxycodone) 5 mg PO Q4H PRN PRN Reason: Pain (moderate 4-6) Potassium Chloride (Klor-Con M20) 40 meq PO Q4H [facility] Stop: 07/16/20 18:01 Last Admin: 07/16/20 13:01 Dose: 40 meq Documented by: Rosuvastatin Calcium (Crestor) 20 mg PO DAILY [facility] Last Admin: 07/16/20 09:26 Dose: 20 mg Documented by: Temazepam (Restoril) 15 mg PO BEDTIME PRN PRN Reason: Sleep Last Admin: 07/14/20 01:04 Dose: 15 mg Documented by: Tramadol HCl (Ultram) 50 mg PO Q6H PRN PRN Reason: Pain Discontinued Medications Dexamethasone (Dexamethasone) 6 mg IV DAILY [facility] Last Admin: 07/14/20 09:31 Dose: 6 mg Documented by: Famotidine (Pepcid) 20 mg PO BID [facility] Last Admin: 07/14/20 08:34 Dose: 20 mg Documented by: Furosemide (Lasix) 20 mg PO ONETIME ONE Stop: 07/15/20 11:38 Last Admin: 07/15/20 12:01 Dose: Not Given Documented by: Sodium Chloride (Normal Saline) 1,000 mls @ 75 mls/hr IV ASDIRECTED [facility] Last Admin: 07/14/20 08:55 Dose: 75 mls/hr Documented by: Remdesivir 200 mg/ Sodium (Chloride) 250 mls @ 250 mls/hr IV ONETIME ONE Stop: 07/13/20 20:59 Last Admin: 07/13/20 21:00 Dose: 250 mls/hr Documented by: Sodium Chloride (Normal Saline) Confirm Administered Dose 100 mls @ as directed .ROUTE .STK-MED ONE Stop: 07/13/20 21:59 Last Admin: 07/14/20 03:38 Dose: Not Given Documented by: Ondansetron HCl (Zofran Odt) 4 mg PO Q6H PRN PRN Reason: nausea, able to take PO Last Admin: 07/15/20 05:33 Dose: 4 mg Documented by: - Exam Quality Assessment: DVT Prophylaxis (Lovenox). No: Supplemental Oxygen General: Alert, Oriented, Cooperative, No Acute Distress HEENT: Pupils Equal, Pupils Reactive, Mucous Membr. Moist/[place] Neck: Supple, Trachea Midline. No: Lymphadenopathy Lungs: Normal Respiratory Effort, Crackles (Fine crackles noted to the bases bilaterally) Cardiovascular: Regular Rate, Regular Rhythm, No Murmurs (Female) Exam: Deferred Back Exam: Normal Inspection, Full Range of Motion Extremities: Normal Inspection, Normal Range of Motion, Non-Tender, Normal Capillary Refill, Pedal Edema Peripheral Pulses: 2+: Radial (L), Radial (R), Dorsalis Pedis (L), Dorsalis Pedis (R) Skin: Warm, Dry, Intact Neurological: No New Focal Deficit Psy/Mental Status: Alert, Normal Affect, Normal Mood Sepsis Event Note - Evaluation Sepsis Screening Result: No Definite Risk - Focused Exam Vital Signs: Vital Signs Temp Pulse Resp BP Pulse Ox 07/16/20 13:05 97.7 F 78 17 113/71 95 07/16/20 13:00 34 H 07/16/20 12:01 30 H 07/16/20 11:00 19 07/16/20 10:00 21 H 07/16/20 09:27 108/58 L 07/16/20 09:00 26 H 07/16/20 08:00 24 H 07/16/20 07:13 98.1 F 79 20 108/58 L 93 L 07/16/20 07:00 25 H 07/16/20 06:00 25 H 07/16/20 05:05 97.7 F 65 18 125/85 94 L - Problem List & Annotations (1) COVID-19 SNOMED Code(s): 021151701 Code(s): U07.1 - COVID-19 Status: Acute Priority: High Current Visit: Yes (2) Chronic kidney disease, stage III (moderate) SNOMED Code(s): 744239312 Code(s): N18.30 - CHRONIC KIDNEY DISEASE, STAGE 3 UNSPECIFIED Status: Acute Current Visit: Yes Qualifiers: Chronic kidney disease stage 3 subtype: stage 3b (GFR 30-44) Qualified Code(s): N18.32 - Chronic kidney disease, stage 3b (3) Coronary artery disease SNOMED Code(s): 29989243 Code(s): I25.10 - ATHSCL HEART DISEASE OF [place] CORONARY ARTERY W/O ANG PCTRS Status: Acute Current Visit: Yes Qualifiers: Coronary Disease-Associated Artery/Lesion type: unspecified vessel or lesion type Associated angina: angina presence unspecified (4) Hypertension SNOMED Code(s): 89217704 Code(s): I10 - ESSENTIAL (PRIMARY) HYPERTENSION Status: Acute Current Visit: Yes Qualifiers: Hypertension type: unspecified Qualified Code(s): I10 - Essential (primary) hypertension (5) Hypoxia SNOMED Code(s): 313024901 Code(s): R09.02 - HYPOXEMIA Status: Acute Priority: High Current Visit: Yes - Problem List Review Problem List Initiated/Reviewed/Updated: Yes - My Orders Last 24 Hours: My Active Orders 07/16/20 10:00 Potassium Chloride [Klor-Con M20] 40 meq PO Q4H 07/17/20 09:15 C-REACTIVE PROTEIN [CHEM] DAILY CBC WITH AUTO DIFF [HEME] DAILY COMPREHENSIVE METABOLIC PN,CMP [CHEM] DAILY D-DIMER QUANTITATIVE [COAG] DAILY MAGNESIUM [CHEM] DAILY PHOSPHORUS [CHEM] DAILY 07/18/20 09:15 C-REACTIVE PROTEIN [CHEM] DAILY CBC WITH AUTO DIFF [HEME] DAILY COMPREHENSIVE METABOLIC PN,CMP [CHEM] DAILY D-DIMER QUANTITATIVE [COAG] DAILY MAGNESIUM [CHEM] DAILY PHOSPHORUS [CHEM] DAILY - Assessment Assessment:: 07/14/20 The patient is no longer on oxygen supplementation. Remdesivir and dexamethasone day 2. Has received 2 units of convalescent plasma. Appetite is returning and is drinking well. Vital signs are stable. CBC unremarkable D-dimer is 1.24 from 1.54. Sodium 139 from 135 Potassium 3.7 from 4.1 BUN 11 Creatinine 0.9 C-reactive protein 3.4 from 5.0 07/15/20 The patient is on room air. She is using her incentive spirometer. Remdesivir and dexamethasone day 3. Has received 2 units of convalescent plasma. Appetite is decreased and she is more nauseated today Vital signs are stable. CBC unremarkable Potassium 3.5 BUN 16 Creatinine 1.1 GFR 49 magnesium 1.9 C-reactive protein 2.4 07/16/20 Remains on room air Incentive spirometer Remdesivir and dexamethasone day 4 Still complaining of nausea today Vital signs have been stable D-dimer 1.01 down from 1.10 potassium 3.1 down from 3.5 BUN 17 up from 16 Creatinine 1.1 GFR 49 C-reactive protein 1.8 down from 2.4 - Plan Plan:: 07/14/20 Continue remdesivir and dexamethasone day 2 Repeat labs as needed Discontinue IV fluids Give patient's home dose of 20 mg of Lasix Incentive spirometer Monitor for hypoxia Encourage ambulation in room Increase p.o. intake At this time the patient will remain admitted for antiviral treatment for Covid. She will be here at least 3 more days. Continue Lovenox for DVT prophylaxis. 07/15/20 Continue remdesivir and dexamethasone day 3 Repeat labs as needed Push p.o. fluids. Give patient's home dose of 20 mg of Lasix Incentive spirometer Monitor for hypoxia Encourage ambulation in room [place]A hose At this time the patient will remain admitted for antiviral treatment for Covid. She will be here at least 2 more days. Continue Lovenox for DVT prophylaxis. 07/16/20 Continue remdesivir and dexamethasone day 4 Zofran as needed for nausea Encourage p.o. fluid intake Continue incentive spirometer Monitor for hypoxia Replace potassium orally today Repeat labs in the morning. Current plan is for patient to be discharged to home Monday. Continue Lovenox for DVT prophylaxis. <Nate Yadav - Last Filed: 07/16/20 18:00> - Patient Data Vitals - Most Recent: Last Vital Signs Temp 36.4 C 07/16/20 15:31 Pulse 84 07/16/20 17:27 Resp 21 H 07/16/20 17:27 BP 101/56 L 07/16/20 17:27 Pulse Ox 94 L 07/16/20 17:27 I&O - Last 24 Hours: Intake & Output 07/16/20 07/16/20 07/16/20 06:59 14:59 22:59 Intake Total 250 360 800 Output Total 300 600 Balance -50 360 200 Lab Results Last 24 Hours: Laboratory Results - last 24 hr 07/16/20 07/16/20 07/16/20 Range/Units 09:00 09:00 09:00 WBC 7.61 (3.98-10.04) K/mm3 RBC 4.42 (3.98-5.22) M/mm3 Hgb 14.0 (11.2-15.7) gm/dl Hct 41.2 (34.1-44.9) % MCV 93.2 (79.4-94.8) fl MCH 31.7 (25.6-32.2) pg MCHC 34.0 (32.2-35.5) g/dl RDW Std Deviation 44.1 (36.4-46.3) fL Plt Count 310 (182-369) K/mm3 MPV 9.1 L (9.4-12.3) fl Neut % (Auto) 80.2 H (34.0-71.1) % Lymph % (Auto) 12.5 L (19.3-51.7) % [place] % (Auto) 6.8 (4.7-12.5) % Eos % (Auto) 0 L (0.7-5.8) Baso % (Auto) 0.1 (0.1-1.2) % Neut # (Auto) 6.10 (1.56-6.13) K/mm3 Lymph # (Auto) 0.95 L (1.18-3.74) K/mm3 [place] # (Auto) 0.52 H (0.24-0.36) K/mm3 Eos # (Auto) 0.00 L (0.04-0.36) K/mm3 Baso # (Auto) 0.01 (0.01-0.08) K/mm3 Manual Slide Review Normal smear D-Dimer, Quantitative 1.01 H (0.19-0.50) mg/L Sodium 141 (136-145) mEq/L Potassium 3.1 L (3.5-5.1) mEq/L Chloride 104 (98-107) mEq/L Carbon Dioxide 24 (21-32) mEq/L Anion Gap 16.1 H (5-15) BUN 17 (7-18) mg/dL Creatinine 1.1 H (0.55-1.02) mg/dL Est Cr Clr Drug Dosing 36.94 mL/min Estimated GFR (MDRD) 49 (>60) mL/min BUN/Creatinine Ratio 15.5 (14-18) Glucose 137 H (80-115) mg/dL Calcium 8.6 (8.5-10.1) mg/dL Magnesium 1.9 (1.8-2.4) mg/dl Total Bilirubin 0.3 (0.2-1.0) mg/dL AST 37 (15-37) U/L ALT 54 (14-59) U/L Alkaline Phosphatase 70 (46-116) U/L C-Reactive Protein 1.8 H* (<1.0) mg/dL Total Protein 6.8 (6.4-8.2) g/dl Albumin 3.0 L (3.4-5.0) g/dl Globulin 3.8 gm/dL Albumin/Globulin Ratio 0.8 L (1-2) Med Orders - Current: Current Medications Acetaminophen (Tylenol) 650 mg PO Q4H PRN PRN Reason: Pain (Mild 1-3)/fever Aspirin (Halfprin) 81 mg PO DAILY [facility] Last Admin: 07/16/20 09:27 Dose: 81 mg Documented by: Dexamethasone (Dexamethasone) 6 mg PO DAILY [facility] Stop: 07/23/20 09:01 Last Admin: 07/16/20 09:27 Dose: 6 mg Documented by: Docusate Sodium (Colace) 100 mg PO BID PRN PRN Reason: Constipation Enoxaparin Sodium (Lovenox) 40 mg SUBCUT DAILY@2100 [facility] Last Admin: 07/15/20 20:10 Dose: 40 mg Documented by: Famotidine (Pepcid) 20 mg PO DAILY [facility] Last Admin: 07/16/20 09:26 Dose: 20 mg Documented by: Furosemide (Lasix) 20 mg PO DAILY PRN PRN Reason: Edema Last Admin: 07/16/20 13:01 Dose: 20 mg Documented by: Remdesivir 100 mg/ Sodium (Chloride) 100 mls @ 100 mls/hr IV Q24H [facility] Stop: 07/17/20 20:59 Last Admin: 07/15/20 20:11 Dose: 100 mls/hr Documented by: Lisinopril (Prinivil) 10 mg PO DAILY [facility] Last Admin: 07/16/20 09:27 Dose: 10 mg Documented by: Magnesium Oxide (Magnesium Oxide) 400 mg PO DAILY [facility] Last Admin: 07/16/20 09:28 Dose: 400 mg Documented by: Ondansetron HCl (Zofran Odt) 4 mg PO Q4H PRN PRN Reason: Nausea/Vomiting Last Admin: 07/16/20 07:37 Dose: 4 mg Documented by: Oxycodone HCl (Oxycodone) 5 mg PO Q4H PRN PRN Reason: Pain (moderate 4-6) Potassium Chloride (Klor-Con M20) 40 meq PO Q4H [facility] Stop: 07/16/20 18:01 Last Admin: 07/16/20 17:27 Dose: 40 meq Documented by: Rosuvastatin Calcium (Crestor) 20 mg PO DAILY [facility] Last Admin: 07/16/20 09:26 Dose: 20 mg Documented by: Temazepam (Restoril) 15 mg PO BEDTIME PRN PRN Reason: Sleep Last Admin: 07/14/20 01:04 Dose: 15 mg Documented by: Tramadol HCl (Ultram) 50 mg PO Q6H PRN PRN Reason: Pain Discontinued Medications Dexamethasone (Dexamethasone) 6 mg IV DAILY [facility] Last Admin: 07/14/20 09:31 Dose: 6 mg Documented by: Famotidine (Pepcid) 20 mg PO BID [facility] Last Admin: 07/14/20 08:34 Dose: 20 mg Documented by: Furosemide (Lasix) 20 mg PO ONETIME ONE Stop: 07/15/20 11:38 Last Admin: 07/15/20 12:01 Dose: Not Given Documented by: Sodium Chloride (Normal Saline) 1,000 mls @ 75 mls/hr IV ASDIRECTED [facility] Last Admin: 07/14/20 08:55 Dose: 75 mls/hr Documented by: Remdesivir 200 mg/ Sodium (Chloride) 250 mls @ 250 mls/hr IV ONETIME ONE Stop: 07/13/20 20:59 Last Admin: 07/13/20 21:00 Dose: 250 mls/hr Documented by: Sodium Chloride (Normal Saline) Confirm Administered Dose 100 mls @ as directed .ROUTE .STK-MED ONE Stop: 07/13/20 21:59 Last Admin: 07/14/20 03:38 Dose: Not Given Documented by: Ondansetron HCl (Zofran Odt) 4 mg PO Q6H PRN PRN Reason: nausea, able to take PO Last Admin: 07/15/20 05:33 Dose: 4 mg Documented by: Sepsis Event Note - Focused Exam Vital Signs: Vital Signs Temp Pulse Resp BP Pulse Ox 07/16/20 17:27 84 21 H 101/56 L 94 L 07/16/20 17:00 28 H 07/16/20 16:00 23 H 07/16/20 15:31 36.4 C 69 20 99/65 93 L 07/16/20 15:00 28 H 07/16/20 14:00 12 07/16/20 13:05 36.5 C 78 17 113/71 95 07/16/20 13:00 34 H 07/16/20 12:01 30 H 07/16/20 11:00 19 07/16/20 10:00 21 H 07/16/20 09:27 108/58 L 07/16/20 09:00 26 H 07/16/20 08:00 24 H 07/16/20 07:13 36.7 C 79 20 108/58 L 93 L 07/16/20 07:00 25 H - Problem List & Annotations (1) COVID-19 SNOMED Code(s): 363316660 Code(s): U07.1 - COVID-19 Status: Acute Priority: High Current Visit: Yes (2) Hypoxia SNOMED Code(s): 254568223 Code(s): R09.02 - HYPOXEMIA Status: Acute Priority: High Current Visit: Yes (3) Hypertension SNOMED Code(s): 86637108 Code(s): I10 - ESSENTIAL (PRIMARY) HYPERTENSION Status: Acute Current Visit: Yes Qualifiers: Hypertension type: unspecified Qualified Code(s): I10 - Essential (primary) hypertension (4) Coronary artery disease SNOMED Code(s): 78782492 Code(s): I25.10 - ATHSCL HEART DISEASE OF [place] CORONARY ARTERY W/O ANG PCTRS Status: Acute Current Visit: Yes Qualifiers: Coronary Disease-Associated Artery/Lesion type: unspecified vessel or lesion type Associated angina: angina presence unspecified (5) Chronic kidney disease, stage III (moderate) SNOMED Code(s): 432332018 Code(s): N18.30 - CHRONIC KIDNEY DISEASE, STAGE 3 UNSPECIFIED Status: Acute Current Visit: Yes Qualifiers: Chronic kidney disease stage 3 subtype: stage 3b (GFR 30-44) Qualified Code(s): N18.32 - Chronic kidney disease, stage 3b - Plan Plan:: I have seen and examined the patient independent of nurse practitioner Maritza Jackson and I have discussed the case with her. I have reviewed and agree with the assessment and plan as outlined for this patient by her. Please see orders.
[2020-07-16] MEDS: REMDESIVIR (EUA) 100 MG in Sodium Chloride 0.9% 100 ML IV SCH (20:15)
[2020-07-16] MEDS: Enoxaparin 40 MG/0.4 ML Syringe SUBCUT SCH (20:16)
[2020-07-17] MEDS: Dexamethasone 4 MG Tab PO SCH (09:00)
[2020-07-17] MEDS: Magnesium Oxide 400 MG Tab PO SCH (09:01)
[2020-07-17] MEDS: Famotidine 20 MG Tab PO SCH (09:02)
[2020-07-17] MEDS: Aspirin 81 MG Tab.EC PO SCH (09:02)
[2020-07-17] MEDS: Rosuvastatin 10 MG Tab PO SCH (09:02)
[2020-07-17] MEDS: Ondansetron 4 MG Tab.DIS PO PRN (09:26)
[2020-07-17] MEDS: Furosemide 20 MG Tab PO SCH (09:26)
[2020-07-17] MEDS: Lisinopril 10 MG Tab PO SCH (09:27)
--- NOTE | 2020-07-17 12:31 | PCM.PN ---
<Maritza Jackson M - Last Filed: 07/17/20 12:34> - General Info Date of Service: 07/17/20 Admission Dx/Problem (Free Text): Admission Diagnosis/Problem Admission Diagnosis/Problem Hypoxia Subjective Update: Doing well today, but is still complaining of nausea in the mornings. She states that this has been ongoing since she is developed Covid. The nausea does ease up throughout the day. Functional Status: Reports: Pain Controlled, Tolerating Diet, Ambulating, Urinating, Incentive Spirometry - Review of Systems General: Reports: No Symptoms HEENT: Reports: No Symptoms Pulmonary: Reports: No Symptoms Cardiovascular: Reports: Edema Gastrointestinal: Reports: Nausea Genitourinary: Reports: No Symptoms Musculoskeletal: Reports: No Symptoms Skin: Reports: No Symptoms Neurological: Reports: No Symptoms Psychiatric: Reports: No Symptoms - Patient Data Vitals - Most Recent: Last Vital Signs Temp 97.5 F 07/17/20 11:41 Pulse 83 07/17/20 11:41 Resp 18 07/17/20 11:11 BP 117/55 L 07/17/20 11:41 Pulse Ox 91 L 07/17/20 11:41 Weight - Most Recent: 66.769 kg I&O - Last 24 Hours: Intake & Output 07/16/20 07/17/20 07/17/20 22:59 06:59 14:59 Intake Total 800 500 Output Total 600 1600 Balance 200 -1100 Lab Results Last 24 Hours: Laboratory Results - last 24 hr 07/17/20 07/17/20 07/17/20 Range/Units 07:20 07:20 07:20 WBC 12.26 H (3.98-10.04) K/mm3 RBC 4.57 (3.98-5.22) M/mm3 Hgb 14.2 (11.2-15.7) gm/dl Hct 42.5 (34.1-44.9) % MCV 93.0 (79.4-94.8) fl MCH 31.1 (25.6-32.2) pg MCHC 33.4 (32.2-35.5) g/dl RDW Std Deviation 44.3 (36.4-46.3) fL Plt Count 342 (182-369) K/mm3 MPV 9.2 L (9.4-12.3) fl Neut % (Auto) 82.0 H (34.0-71.1) % Lymph % (Auto) 8.9 L (19.3-51.7) % [place] % (Auto) 8.7 (4.7-12.5) % Eos % (Auto) 0 L (0.7-5.8) Baso % (Auto) 0.2 (0.1-1.2) % Neut # (Auto) 10.05 H (1.56-6.13) K/mm3 Lymph # (Auto) 1.09 L (1.18-3.74) K/mm3 [place] # (Auto) 1.07 H (0.24-0.36) K/mm3 Eos # (Auto) 0.00 L (0.04-0.36) K/mm3 Baso # (Auto) 0.02 (0.01-0.08) K/mm3 D-Dimer, Quantitative 1.07 H (0.19-0.50) mg/L Sodium 138 (136-145) mEq/L Potassium 4.4 (3.5-5.1) mEq/L Chloride 103 (98-107) mEq/L Carbon Dioxide 23 (21-32) mEq/L Anion Gap 16.4 H (5-15) BUN 18 (7-18) mg/dL Creatinine 1.0 (0.55-1.02) mg/dL Est Cr Clr Drug Dosing 40.63 mL/min Estimated GFR (MDRD) 55 (>60) mL/min BUN/Creatinine Ratio 18.0 (14-18) Glucose 93 (80-115) mg/dL Calcium 8.7 (8.5-10.1) mg/dL Phosphorus 3.3 (2.6-4.7) mg/dL Magnesium 2.0 (1.8-2.4) mg/dl Total Bilirubin 0.4 (0.2-1.0) mg/dL AST 28 (15-37) U/L ALT 50 (14-59) U/L Alkaline Phosphatase 73 (46-116) U/L C-Reactive Protein 1.9 H* (<1.0) mg/dL Total Protein 6.8 (6.4-8.2) g/dl Albumin 3.0 L (3.4-5.0) g/dl Globulin 3.8 gm/dL Albumin/Globulin Ratio 0.8 L (1-2) Med Orders - Current: Current Medications Acetaminophen (Tylenol) 650 mg PO Q4H PRN PRN Reason: Pain (Mild 1-3)/fever Aspirin (Halfprin) 81 mg PO DAILY [facility] Last Admin: 07/17/20 09:02 Dose: 81 mg Documented by: Dexamethasone (Dexamethasone) 6 mg PO DAILY [facility] Stop: 07/23/20 09:01 Last Admin: 07/17/20 09:00 Dose: 6 mg Documented by: Docusate Sodium (Colace) 100 mg PO BID PRN PRN Reason: Constipation Enoxaparin Sodium (Lovenox) 40 mg SUBCUT DAILY@2100 [facility] Last Admin: 07/16/20 20:16 Dose: 40 mg Documented by: Famotidine (Pepcid) 20 mg PO DAILY [facility] Last Admin: 07/17/20 09:02 Dose: 20 mg Documented by: Furosemide (Lasix) 20 mg PO DAILY [facility] Last Admin: 07/17/20 09:26 Dose: 20 mg Documented by: Remdesivir 100 mg/ Sodium (Chloride) 100 mls @ 100 mls/hr IV Q24H [facility] Stop: 07/17/20 20:59 Last Admin: 07/16/20 20:15 Dose: 100 mls/hr Documented by: Lisinopril (Prinivil) 10 mg PO DAILY [facility] Last Admin: 07/17/20 09:27 Dose: Not Given Documented by: Magnesium Oxide (Magnesium Oxide) 400 mg PO DAILY [facility] Last Admin: 07/17/20 09:01 Dose: 400 mg Documented by: Ondansetron HCl (Zofran Odt) 4 mg PO Q4H PRN PRN Reason: Nausea/Vomiting Last Admin: 07/17/20 09:26 Dose: 4 mg Documented by: Oxycodone HCl (Oxycodone) 5 mg PO Q4H PRN PRN Reason: Pain (moderate 4-6) Rosuvastatin Calcium (Crestor) 20 mg PO DAILY [facility] Last Admin: 07/17/20 09:02 Dose: 20 mg Documented by: Temazepam (Restoril) 15 mg PO BEDTIME PRN PRN Reason: Sleep Last Admin: 07/14/20 01:04 Dose: 15 mg Documented by: Tramadol HCl (Ultram) 50 mg PO Q6H PRN PRN Reason: Pain Discontinued Medications Dexamethasone (Dexamethasone) 6 mg IV DAILY [facility] Last Admin: 07/14/20 09:31 Dose: 6 mg Documented by: Famotidine (Pepcid) 20 mg PO BID [facility] Last Admin: 07/14/20 08:34 Dose: 20 mg Documented by: Furosemide (Lasix) 20 mg PO DAILY PRN PRN Reason: Edema Last Admin: 07/16/20 13:01 Dose: 20 mg Documented by: Furosemide (Lasix) 20 mg PO ONETIME ONE Stop: 07/15/20 11:38 Last Admin: 07/15/20 12:01 Dose: Not Given Documented by: Sodium Chloride (Normal Saline) 1,000 mls @ 75 mls/hr IV ASDIRECTED [facility] Last Admin: 07/14/20 08:55 Dose: 75 mls/hr Documented by: Remdesivir 200 mg/ Sodium (Chloride) 250 mls @ 250 mls/hr IV ONETIME ONE Stop: 07/13/20 20:59 Last Admin: 07/13/20 21:00 Dose: 250 mls/hr Documented by: Sodium Chloride (Normal Saline) Confirm Administered Dose 100 mls @ as directed .ROUTE .STK-MED ONE Stop: 07/13/20 21:59 Last Admin: 07/14/20 03:38 Dose: Not Given Documented by: Ondansetron HCl (Zofran Odt) 4 mg PO Q6H PRN PRN Reason: nausea, able to take PO Last Admin: 07/15/20 05:33 Dose: 4 mg Documented by: Potassium Chloride (Klor-Con M20) 40 meq PO Q4H [facility] Stop: 07/16/20 18:01 Last Admin: 07/16/20 17:27 Dose: 40 meq Documented by: - Exam Quality Assessment: DVT Prophylaxis (Lovenox). No: Supplemental Oxygen General: Alert, Oriented, Cooperative, No Acute Distress HEENT: Pupils Equal, Pupils Reactive, Mucous Membr. Moist/[place] Neck: Supple, Trachea Midline. No: Lymphadenopathy Lungs: Normal Respiratory Effort, Crackles (To the bilateral bases) Cardiovascular: Regular Rate, Regular Rhythm, No Murmurs GI/Abdominal Exam: Normal Bowel Sounds, Soft, Non-Tender, No Distention (Female) Exam: Deferred Back Exam: Normal Inspection, Full Range of Motion Extremities: Normal Inspection, Normal Range of Motion, Non-Tender, No Pedal Edema, Normal Capillary Refill Peripheral Pulses: 2+: Radial (L), Radial (R), Dorsalis Pedis (L), Dorsalis Pedis (R) Skin: Warm, Dry, Intact Neurological: No New Focal Deficit Psy/Mental Status: Alert, Normal Affect, Normal Mood Sepsis Event Note - Evaluation Sepsis Screening Result: No Definite Risk - Focused Exam Vital Signs: Vital Signs Temp Pulse Resp BP Pulse Ox 07/17/20 11:41 97.5 F 83 117/55 L 91 L 07/17/20 11:11 18 07/17/20 10:00 25 H 07/17/20 09:27 98/55 L 07/17/20 09:10 97.5 F 22 H 07/17/20 09:07 76 23 H 98/55 L 92 L 07/17/20 09:00 26 H 07/17/20 08:00 17 07/17/20 07:00 25 H 07/17/20 06:00 23 H 07/17/20 05:00 27 H 07/17/20 04:22 97.9 F 65 20 114/97 H 94 L 07/17/20 02:00 24 H 07/17/20 01:00 25 H 07/17/20 00:40 98.2 F 58 L 27 H 117/71 95 - Problem List & Annotations (1) COVID-19 SNOMED Code(s): 444405534 Code(s): U07.1 - COVID-19 Status: Acute Priority: High Current Visit: Yes (2) Chronic kidney disease, stage III (moderate) SNOMED Code(s): 697341793 Code(s): N18.30 - CHRONIC KIDNEY DISEASE, STAGE 3 UNSPECIFIED Status: Acute Current Visit: Yes Qualifiers: Chronic kidney disease stage 3 subtype: stage 3b (GFR 30-44) Qualified Code(s): N18.32 - Chronic kidney disease, stage 3b (3) Coronary artery disease SNOMED Code(s): 38379516 Code(s): I25.10 - ATHSCL HEART DISEASE OF [place] CORONARY ARTERY W/O ANG PCTRS Status: Acute Current Visit: Yes Qualifiers: Coronary Disease-Associated Artery/Lesion type: unspecified vessel or lesion type Associated angina: angina presence unspecified (4) Hypertension SNOMED Code(s): 44800514 Code(s): I10 - ESSENTIAL (PRIMARY) HYPERTENSION Status: Acute Current Visit: Yes Qualifiers: Hypertension type: unspecified Qualified Code(s): I10 - Essential (primary) hypertension (5) Hypoxia SNOMED Code(s): 514695515 Code(s): R09.02 - HYPOXEMIA Status: Acute Priority: High Current Visit: Yes - Problem List Review Problem List Initiated/Reviewed/Updated: Yes - My Orders Last 24 Hours: My Active Orders 07/17/20 09:00 Furosemide [Lasix] 20 mg PO DAILY 07/18/20 05:11 C-REACTIVE PROTEIN [CHEM] DAILY CBC WITH AUTO DIFF [HEME] AM COMPREHENSIVE METABOLIC PN,CMP [CHEM] AM D-DIMER QUANTITATIVE [COAG] AM MAGNESIUM [CHEM] AM PHOSPHORUS [CHEM] AM - Assessment Assessment:: 07/14/20 The patient is no longer on oxygen supplementation. Remdesivir and dexamethasone day 2. Has received 2 units of convalescent plasma. Appetite is returning and is drinking well. Vital signs are stable. CBC unremarkable D-dimer is 1.24 from 1.54. Sodium 139 from 135 Potassium 3.7 from 4.1 BUN 11 Creatinine 0.9 C-reactive protein 3.4 from 5.0 07/15/20 The patient is on room air. She is using her incentive spirometer. Remdesivir and dexamethasone day 3. Has received 2 units of convalescent plasma. Appetite is decreased and she is more nauseated today Vital signs are stable. CBC unremarkable Potassium 3.5 BUN 16 Creatinine 1.1 GFR 49 magnesium 1.9 C-reactive protein 2.4 07/16/20 Remains on room air Incentive spirometer Remdesivir and dexamethasone day 4 Still complaining of nausea today Vital signs have been stable D-dimer 1.01 down from 1.10 potassium 3.1 down from 3.5 BUN 17 up from 16 Creatinine 1.1 GFR 49 C-reactive protein 1.8 down from 2.4 07/17/20 Has been using her incentive spirometer This is day 5 of remdesivir and dexamethasone. Appetite is better however she is continuing to complain of nausea first thing in the morning. She states this has been ongoing since she developed Covid. She has been receiving Zofran for this which does seem to help. Will plan on giving her a prescription for Zofran upon discharge. She is otherwise feeling well. Vital signs have been stable and she has been afebrile WBC 12.26 up from 7.61 D-dimer 1.07 up from 1.01 Potassium 4.4 up from 3.1 BUN 18 Creatinine 1.0 GFR 55 C-reactive protein 1.9 up from 1.8 - Plan Plan:: 07/14/20 Continue remdesivir and dexamethasone day 2 Repeat labs as needed Discontinue IV fluids Give patient's home dose of 20 mg of Lasix Incentive spirometer Monitor for hypoxia Encourage ambulation in room Increase p.o. intake At this time the patient will remain admitted for antiviral treatment for Covid. She will be here at least 3 more days. Continue Lovenox for DVT prophylaxis. 07/15/20 Continue remdesivir and dexamethasone day 3 Repeat labs as needed Push p.o. fluids. Give patient's home dose of 20 mg of Lasix Incentive spirometer Monitor for hypoxia Encourage ambulation in room [place]A hose At this time the patient will remain admitted for antiviral treatment for Covid. She will be here at least 2 more days. Continue Lovenox for DVT prophylaxis. 07/16/20 Continue remdesivir and dexamethasone day 4 Zofran as needed for nausea Encourage p.o. fluid intake Continue incentive spirometer Monitor for hypoxia Replace potassium orally today Repeat labs in the morning. Current plan is for patient to be discharged to home Monday. Continue Lovenox for DVT prophylaxis. 07/17/20 Continue remdesivir and dexamethasone day 5 Zofran as needed for nausea Encourage p.o. fluid intake We will repeat lab work in the a.m. White count was elevated this morning and it is uncertain whether or not this is due to the dexamethasone or an acute rise. Current plan is for patient to be discharged home tomorrow at 10 AM. Her daughter is coming from [place] to pick her up. She will need a prescription for Zofran and dexamethasone upon discharge. <Nate Yadav - Last Filed: 07/17/20 16:27> - Patient Data Vitals - Most Recent: Last Vital Signs Temp 36.4 C 07/17/20 11:41 Pulse 83 07/17/20 11:41 Resp 18 07/17/20 11:11 BP 117/55 L 07/17/20 11:41 Pulse Ox 91 L 07/17/20 11:41 I&O - Last 24 Hours: Intake & Output 07/17/20 07/17/20 07/17/20 06:59 14:59 22:59 Intake Total 500 240 220 Output Total 1600 Balance -1100 240 220 Lab Results Last 24 Hours: Laboratory Results - last 24 hr 07/17/20 07/17/20 07/17/20 Range/Units 07:20 07:20 07:20 WBC 12.26 H (3.98-10.04) K/mm3 RBC 4.57 (3.98-5.22) M/mm3 Hgb 14.2 (11.2-15.7) gm/dl Hct 42.5 (34.1-44.9) % MCV 93.0 (79.4-94.8) fl MCH 31.1 (25.6-32.2) pg MCHC 33.4 (32.2-35.5) g/dl RDW Std Deviation 44.3 (36.4-46.3) fL Plt Count 342 (182-369) K/mm3 MPV 9.2 L (9.4-12.3) fl Neut % (Auto) 82.0 H (34.0-71.1) % Lymph % (Auto) 8.9 L (19.3-51.7) % [place] % (Auto) 8.7 (4.7-12.5) % Eos % (Auto) 0 L (0.7-5.8) Baso % (Auto) 0.2 (0.1-1.2) % Neut # (Auto) 10.05 H (1.56-6.13) K/mm3 Lymph # (Auto) 1.09 L (1.18-3.74) K/mm3 [place] # (Auto) 1.07 H (0.24-0.36) K/mm3 Eos # (Auto) 0.00 L (0.04-0.36) K/mm3 Baso # (Auto) 0.02 (0.01-0.08) K/mm3 D-Dimer, Quantitative 1.07 H (0.19-0.50) mg/L Sodium 138 (136-145) mEq/L Potassium 4.4 (3.5-5.1) mEq/L Chloride 103 (98-107) mEq/L Carbon Dioxide 23 (21-32) mEq/L Anion Gap 16.4 H (5-15) BUN 18 (7-18) mg/dL Creatinine 1.0 (0.55-1.02) mg/dL Est Cr Clr Drug Dosing 40.63 mL/min Estimated GFR (MDRD) 55 (>60) mL/min BUN/Creatinine Ratio 18.0 (14-18) Glucose 93 (80-115) mg/dL Calcium 8.7 (8.5-10.1) mg/dL Phosphorus 3.3 (2.6-4.7) mg/dL Magnesium 2.0 (1.8-2.4) mg/dl Total Bilirubin 0.4 (0.2-1.0) mg/dL AST 28 (15-37) U/L ALT 50 (14-59) U/L Alkaline Phosphatase 73 (46-116) U/L C-Reactive Protein 1.9 H* (<1.0) mg/dL Total Protein 6.8 (6.4-8.2) g/dl Albumin 3.0 L (3.4-5.0) g/dl Globulin 3.8 gm/dL Albumin/Globulin Ratio 0.8 L (1-2) Med Orders - Current: Current Medications Acetaminophen (Tylenol) 650 mg PO Q4H PRN PRN Reason: Pain (Mild 1-3)/fever Aspirin (Halfprin) 81 mg PO DAILY [facility] Last Admin: 07/17/20 09:02 Dose: 81 mg Documented by: Dexamethasone (Dexamethasone) 6 mg PO DAILY [facility] Stop: 07/23/20 09:01 Last Admin: 07/17/20 09:00 Dose: 6 mg Documented by: Docusate Sodium (Colace) 100 mg PO BID PRN PRN Reason: Constipation Enoxaparin Sodium (Lovenox) 40 mg SUBCUT DAILY@2100 [facility] Last Admin: 07/16/20 20:16 Dose: 40 mg Documented by: Famotidine (Pepcid) 20 mg PO DAILY [facility] Last Admin: 07/17/20 09:02 Dose: 20 mg Documented by: Furosemide (Lasix) 20 mg PO DAILY [facility] Last Admin: 07/17/20 09:26 Dose: 20 mg Documented by: Remdesivir 100 mg/ Sodium (Chloride) 100 mls @ 100 mls/hr IV Q24H [facility] Stop: 07/17/20 20:59 Last Admin: 07/16/20 20:15 Dose: 100 mls/hr Documented by: Lisinopril (Prinivil) 10 mg PO DAILY [facility] Last Admin: 07/17/20 09:27 Dose: Not Given Documented by: Magnesium Oxide (Magnesium Oxide) 400 mg PO DAILY [facility] Last Admin: 07/17/20 09:01 Dose: 400 mg Documented by: Ondansetron HCl (Zofran Odt) 4 mg PO Q4H PRN PRN Reason: Nausea/Vomiting Last Admin: 07/17/20 09:26 Dose: 4 mg Documented by: Oxycodone HCl (Oxycodone) 5 mg PO Q4H PRN PRN Reason: Pain (moderate 4-6) Rosuvastatin Calcium (Crestor) 20 mg PO DAILY [facility] Last Admin: 07/17/20 09:02 Dose: 20 mg Documented by: Temazepam (Restoril) 15 mg PO BEDTIME PRN PRN Reason: Sleep Last Admin: 07/14/20 01:04 Dose: 15 mg Documented by: Tramadol HCl (Ultram) 50 mg PO Q6H PRN PRN Reason: Pain Discontinued Medications Dexamethasone (Dexamethasone) 6 mg IV DAILY [facility] Last Admin: 07/14/20 09:31 Dose: 6 mg Documented by: Famotidine (Pepcid) 20 mg PO BID [facility] Last Admin: 07/14/20 08:34 Dose: 20 mg Documented by: Furosemide (Lasix) 20 mg PO DAILY PRN PRN Reason: Edema Last Admin: 07/16/20 13:01 Dose: 20 mg Documented by: Furosemide (Lasix) 20 mg PO ONETIME ONE Stop: 07/15/20 11:38 Last Admin: 07/15/20 12:01 Dose: Not Given Documented by: Sodium Chloride (Normal Saline) 1,000 mls @ 75 mls/hr IV ASDIRECTED [facility] Last Admin: 07/14/20 08:55 Dose: 75 mls/hr Documented by: Remdesivir 200 mg/ Sodium (Chloride) 250 mls @ 250 mls/hr IV ONETIME ONE Stop: 07/13/20 20:59 Last Admin: 07/13/20 21:00 Dose: 250 mls/hr Documented by: Sodium Chloride (Normal Saline) Confirm Administered Dose 100 mls @ as directed .ROUTE .STK-MED ONE Stop: 07/13/20 21:59 Last Admin: 07/14/20 03:38 Dose: Not Given Documented by: Ondansetron HCl (Zofran Odt) 4 mg PO Q6H PRN PRN Reason: nausea, able to take PO Last Admin: 07/15/20 05:33 Dose: 4 mg Documented by: Potassium Chloride (Klor-Con M20) 40 meq PO Q4H [facility] Stop: 07/16/20 18:01 Last Admin: 07/16/20 17:27 Dose: 40 meq Documented by: Sepsis Event Note - Focused Exam Vital Signs: Vital Signs Temp Pulse Resp BP Pulse Ox 07/17/20 11:41 36.4 C 83 117/55 L 91 L 07/17/20 11:11 18 07/17/20 10:00 25 H 07/17/20 09:27 98/55 L 07/17/20 09:10 36.4 C 22 H 07/17/20 09:07 76 23 H 98/55 L 92 L 07/17/20 09:00 26 H 07/17/20 08:00 17 07/17/20 07:00 25 H 07/17/20 06:00 23 H 07/17/20 05:00 27 H - Problem List & Annotations (1) COVID-19 SNOMED Code(s): 558425066 Code(s): U07.1 - COVID-19 Status: Acute Priority: High Current Visit: Yes (2) Hypoxia SNOMED Code(s): 442013639 Code(s): R09.02 - HYPOXEMIA Status: Acute Priority: High Current Visit: Yes (3) Hypertension SNOMED Code(s): 45424873 Code(s): I10 - ESSENTIAL (PRIMARY) HYPERTENSION Status: Acute Current Visit: Yes Qualifiers: Hypertension type: unspecified Qualified Code(s): I10 - Essential (primary) hypertension (4) Coronary artery disease SNOMED Code(s): 22143894 Code(s): I25.10 - ATHSCL HEART DISEASE OF [place] CORONARY ARTERY W/O ANG PCTRS Status: Acute Current Visit: Yes Qualifiers: Coronary Disease-Associated Artery/Lesion type: unspecified vessel or lesion type Associated angina: angina presence unspecified (5) Chronic kidney disease, stage III (moderate) SNOMED Code(s): 001179105 Code(s): N18.30 - CHRONIC KIDNEY DISEASE, STAGE 3 UNSPECIFIED Status: Acute Current Visit: Yes Qualifiers: Chronic kidney disease stage 3 subtype: stage 3b (GFR 30-44) Qualified Code(s): N18.32 - Chronic kidney disease, stage 3b - Plan Plan:: I have seen and examined the patient independent of nurse practitioner Maritza Jackson and I have discussed the case with her. I have reviewed and agree with the assessment and plan as outlined for this patient by her. Please see orders.
[2020-07-17] MEDS: REMDESIVIR (EUA) 100 MG in Sodium Chloride 0.9% 100 ML IV SCH (20:23)
[2020-07-17] MEDS: Enoxaparin 40 MG/0.4 ML Syringe SUBCUT SCH (20:23)
[2020-07-18] MEDS: Magnesium Oxide 400 MG Tab PO SCH (08:11)
[2020-07-18] MEDS: Furosemide 20 MG Tab PO SCH (08:12)
[2020-07-18] MEDS: Aspirin 81 MG Tab.EC PO SCH (08:12)
[2020-07-18] MEDS: Lisinopril 10 MG Tab PO SCH (08:12)
[2020-07-18] MEDS: Famotidine 20 MG Tab PO SCH (08:12)
[2020-07-18] MEDS: Rosuvastatin 10 MG Tab PO SCH (08:13)
[2020-07-18] MEDS: Dexamethasone 4 MG Tab PO SCH (08:14)
--- NOTE | 2020-07-18 08:25 | PCM.DCSUM1 ---
Discharge Summary - Hospital Course HPI Initial Comments: The patient was admitted for acute respiratory failure secondary to COVID-19 infection Diagnosis: Stroke: No - Discharge Data Discharge Date: 07/18/20 Discharge Disposition: Home, Self-Care 01 Condition: Good - Referral to Home Health Primary Care Physician: Mady Corona NP - Discharge Diagnosis/Problem(s) (1) COVID-19 SNOMED Code(s): 381249342 ICD Code: U07.1 - COVID-19 Status: Acute Priority: High (2) Hypoxia SNOMED Code(s): 651841874 ICD Code: R09.02 - HYPOXEMIA Status: Resolved Priority: High (3) Hypertension SNOMED Code(s): 22152182 ICD Code: I10 - ESSENTIAL (PRIMARY) HYPERTENSION Status: Chronic Priority: High Qualifiers: Hypertension type: unspecified Qualified Code(s): I10 - Essential (primary) hypertension (4) Coronary artery disease SNOMED Code(s): 79908980 ICD Code: I25.10 - ATHSCL HEART DISEASE OF [place] CORONARY ARTERY W/O ANG PCTRS Status: Chronic Priority: High Qualifiers: Coronary Disease-Associated Artery/Lesion type: unspecified vessel or lesion type Associated angina: angina presence unspecified (5) Chronic kidney disease, stage III (moderate) SNOMED Code(s): 313169012 ICD Code: N18.30 - CHRONIC KIDNEY DISEASE, STAGE 3 UNSPECIFIED Status: Group Teacher paula Qualifiers: Chronic kidney disease stage 3 subtype: stage 3b (GFR 30-44) Qualified Code(s): N18.32 - Chronic kidney disease, stage 3b - Patient Summary/Data Hospital Course: Patient is a 69-year-old lady who is a direct admission from [facility] due to hypoxia associated with COVID-19. Patient reports that her shortness of breath with fever and chills started approximately 6 days ago. The patient then had presented to the emergency department and was subsequently transferred here for direct admission. The patient was started on aggressive COVID-19 treatment to include dexamethasone 6 mg IV and then changed to p.o. daily. The patient also had been started on remdesivir 200 mg initially followed by 100 mg daily for 4 more days. She also received convalescent plasma. The patient tolerated this well. Patient has been tolerating her diet well. She was still having some nausea and therefore was given Zofran upon discharge. The patient has been recommended to have her diet as tolerated. She is also to have activity as tolerated. The patient has been recommended to continue with her diet as tolerated. She has been hemodynamically stable and she is discharged from acute hospitalization with the recommendations listed above. Patient is to follow-up with her primary care physician. - Patient Instructions Diet: Usual Diet as Tolerated Activity: As Tolerated Notify Provider of: Fever, Increased Pain - Discharge Plan *PRESCRIPTION DRUG MONITORING PROGRAM REVIEWED*: Not Applicable *COPY OF PRESCRIPTION DRUG MONITORING REPORT IN PATIENT EDIN: Not Applicable Prescriptions/Med Rec: dexAMETHasone [Dexamethasone] 6 mg PO DAILY #5 tablet Ondansetron [Zofran ODT] 4 mg PO Q4H PRN #20 tab.dis PRN Reason: Nausea/Vomiting Home Medications: Home Meds Aspirin [Halfprin] 81 mg PO DAILY 07/13/20 [History] Furosemide 20 mg PO DAILY PRN 07/13/20 [History] Magnesium Oxide 250 mg PO DAILY 07/13/20 [History] Omeprazole 20 mg PO DAILY 07/13/20 [History] Rosuvastatin [Crestor] 20 mg PO DAILY 07/13/20 [History] lisinopriL [Lisinopril] 10 mg PO DAILY 07/13/20 [History] traMADol [Ultram] 50 - 100 mg PO Q6HR PRN 07/13/20 [History] Calcium Carbonate/Vitamin D3 [Calcium 600-D3 20Mcg(800 Unit)] 1 tab PO DAILY 07/14/20 [History] Glucosamine.Omega3 1,500 mg PO DAILY 07/14/20 [History] Non-Formulary Medication [NF Drug] 1 tab PO DAILY 07/14/20 [History] Ondansetron [Zofran ODT] 4 mg PO Q4H PRN #20 tab.dis 07/18/20 [Rx] dexAMETHasone [Dexamethasone] 6 mg PO DAILY #5 tablet 07/18/20 [Rx] Oxygen Therapy Mode: Room Air Patient Handouts: COVID-19 Frequently Asked Questions, COVID-19, Sepsis, Diagnosis, Adult, COVID-19: How to Protect Yourself and Others - [facility] - Discharge Summary/Plan Comment DC Time >30 min.: Yes - General Info Date of Service: 07/18/20 Admission Dx/Problem (Free Text: Admission Diagnosis/Problem Admission Diagnosis/Problem Hypoxia Subjective Update: The patient is doing better today. She is not on oxygen. She says she feels like she can go home safely. Functional Status: Reports: Pain Controlled, Tolerating Diet - Review of Systems General: Reports: No Symptoms HEENT: Reports: No Symptoms Pulmonary: Reports: No Symptoms Cardiovascular: Reports: No Symptoms Gastrointestinal: Reports: No Symptoms Genitourinary: Reports: No Symptoms Musculoskeletal: Reports: No Symptoms Skin: Reports: No Symptoms Neurological: Reports: No Symptoms Psychiatric: Reports: No Symptoms - Patient Data Vitals - Most Recent: Last Vital Signs Temp 36.8 C 07/18/20 00:14 Pulse 88 07/18/20 08:10 Resp 23 H 07/18/20 08:10 BP 115/63 07/18/20 08:12 Pulse Ox 92 L 07/18/20 08:10 Weight - Most Recent: 65.136 kg I&O - Last 24 hours: Intake & Output 07/17/20 07/18/20 07/18/20 22:59 06:59 14:59 Intake Total 1370 220 Output Total 1300 150 Balance 70 70 Lab Results - Last 24 hrs: Laboratory Results - last 24 hr 07/17/20 07/18/20 07/18/20 Range/Units 07:20 05:14 05:14 WBC 7.90 (3.98-10.04) K/mm3 RBC 4.67 (3.98-5.22) M/mm3 Hgb 14.6 (11.2-15.7) gm/dl Hct 43.3 (34.1-44.9) % MCV 92.7 (79.4-94.8) fl MCH 31.3 (25.6-32.2) pg MCHC 33.7 (32.2-35.5) g/dl RDW Std Deviation 43.7 (36.4-46.3) fL Plt Count 373 H (182-369) K/mm3 MPV 9.5 (9.4-12.3) fl Neut % (Auto) 75.4 H (34.0-71.1) % Lymph % (Auto) 12.3 L (19.3-51.7) % [place]he % (Auto) 11.6 (4.7-12.5) % Eos % (Auto) 0 L (0.7-5.8) Baso % (Auto) 0.1 (0.1-1.2) % Neut # (Auto) 5.95 (1.56-6.13) K/mm3 Lymph # (Auto) 0.97 L (1.18-3.74) K/mm3 [place]he # (Auto) 0.92 H (0.24-0.36) K/mm3 Eos # (Auto) 0.00 L (0.04-0.36) K/mm3 Baso # (Auto) 0.01 (0.01-0.08) K/mm3 Manual Slide Review Normal smear D-Dimer, Quantitative 1.07 H (0.19-0.50) mg/L Sodium 138 (136-145) mEq/L Potassium 4.2 (3.5-5.1) mEq/L Chloride 102 (98-107) mEq/L Carbon Dioxide 24 (21-32) mEq/L Anion Gap 16.2 H (5-15) BUN 21 H (7-18) mg/dL Creatinine 1.0 (0.55-1.02) mg/dL Est Cr Clr Drug Dosing 40.63 mL/min Estimated GFR (MDRD) 55 (>60) mL/min BUN/Creatinine Ratio 21.0 H (14-18) Glucose 93 (80-115) mg/dL Calcium 8.7 (8.5-10.1) mg/dL Phosphorus 4.0 (2.6-4.7) mg/dL Magnesium 2.2 (1.8-2.4) mg/dl Total Bilirubin 0.5 (0.2-1.0) mg/dL AST 19 (15-37) U/L ALT 43 (14-59) U/L Alkaline Phosphatase 73 (46-116) U/L C-Reactive Protein 2.4 H* (<1.0) mg/dL Total Protein 7.0 (6.4-8.2) g/dl Albumin 3.1 L (3.4-5.0) g/dl Globulin 3.9 gm/dL Albumin/Globulin Ratio 0.8 L (1-2) /24/20 Range/Units 05:14 WBC (3.98-10.04) K/mm3 RBC (3.98-5.22) M/mm3 Hgb (11.2-15.7) gm/dl Hct (34.1-44.9) % MCV (79.4-94.8) fl MCH (25.6-32.2) pg MCHC (32.2-35.5) g/dl RDW Std Deviation (36.4-46.3) fL Plt Count (182-369) K/mm3 MPV (9.4-12.3) fl Neut % (Auto) (34.0-71.1) % Lymph % (Auto) (19.3-51.7) % [place] % (Auto) (4.7-12.5) % Eos % (Auto) (0.7-5.8) Baso % (Auto) (0.1-1.2) % Neut # (Auto) (1.56-6.13) K/mm3 Lymph # (Auto) (1.18-3.74) K/mm3 [place] # (Auto) (0.24-0.36) K/mm3 Eos # (Auto) (0.04-0.36) K/mm3 Baso # (Auto) (0.01-0.08) K/mm3 Manual Slide Review D-Dimer, Quantitative 1.30 H (0.19-0.50) mg/L Sodium (136-145) mEq/L Potassium (3.5-5.1) mEq/L Chloride (98-107) mEq/L Carbon Dioxide (21-32) mEq/L Anion Gap (5-15) BUN (7-18) mg/dL Creatinine (0.55-1.02) mg/dL Est Cr Clr Drug Dosing mL/min Estimated GFR (MDRD) (>60) mL/min BUN/Creatinine Ratio (14-18) Glucose (80-115) mg/dL Calcium (8.5-10.1) mg/dL Phosphorus (2.6-4.7) mg/dL Magnesium (1.8-2.4) mg/dl Total Bilirubin (0.2-1.0) mg/dL AST (15-37) U/L ALT (14-59) U/L Alkaline Phosphatase (46-116) U/L C-Reactive Protein (<1.0) mg/dL Total Protein (6.4-8.2) g/dl Albumin (3.4-5.0) g/dl Globulin gm/dL Albumin/Globulin Ratio (1-2) Med Orders - Current: Current Medications Acetaminophen (Tylenol) 650 mg PO Q4H PRN PRN Reason: Pain (Mild 1-3)/fever Aspirin (Halfprin) 81 mg PO DAILY [facility] Last Admin: 07/18/20 08:12 Dose: 81 mg Documented by: Dexamethasone (Dexamethasone) 6 mg PO DAILY [facility] Stop: 07/23/20 09:01 Last Admin: 07/18/20 08:14 Dose: 6 mg Documented by: Docusate Sodium (Colace) 100 mg PO BID PRN PRN Reason: Constipation Last Admin: 07/17/20 16:48 Dose: 100 mg Documented by: Enoxaparin Sodium (Lovenox) 40 mg SUBCUT DAILY@2100 [facility] Last Admin: 07/17/20 20:23 Dose: 40 mg Documented by: Famotidine (Pepcid) 20 mg PO DAILY [facility] Last Admin: 07/18/20 08:12 Dose: 20 mg Documented by: Furosemide (Lasix) 20 mg PO DAILY [facility] Last Admin: 07/18/20 08:12 Dose: 20 mg Documented by: Lisinopril (Prinivil) 10 mg PO DAILY [facility] Last Admin: 07/18/20 08:12 Dose: 10 mg Documented by: Magnesium Oxide (Magnesium Oxide) 400 mg PO DAILY [facility] Last Admin: 07/18/20 08:11 Dose: 400 mg Documented by: Ondansetron HCl (Zofran Odt) 4 mg PO Q4H PRN PRN Reason: Nausea/Vomiting Last Admin: 07/17/20 09:26 Dose: 4 mg Documented by: Oxycodone HCl (Oxycodone) 5 mg PO Q4H PRN PRN Reason: Pain (moderate 4-6) Rosuvastatin Calcium (Crestor) 20 mg PO DAILY [facility] Last Admin: 07/18/20 08:13 Dose: 20 mg Documented by: Temazepam (Restoril) 15 mg PO BEDTIME PRN PRN Reason: Sleep Last Admin: 07/14/20 01:04 Dose: 15 mg Documented by: Tramadol HCl (Ultram) 50 mg PO Q6H PRN PRN Reason: Pain Discontinued Medications Dexamethasone (Dexamethasone) 6 mg IV DAILY [facility] Last Admin: 07/14/20 09:31 Dose: 6 mg Documented by: Famotidine (Pepcid) 20 mg PO BID [facility] Last Admin: 07/14/20 08:34 Dose: 20 mg Documented by: Furosemide (Lasix) 20 mg PO DAILY PRN PRN Reason: Edema Last Admin: 07/16/20 13:01 Dose: 20 mg Documented by: Furosemide (Lasix) 20 mg PO ONETIME ONE Stop: 07/15/20 11:38 Last Admin: 07/15/20 12:01 Dose: Not Given Documented by: Sodium Chloride (Normal Saline) 1,000 mls @ 75 mls/hr IV ASDIRECTED [facility] Last Admin: 07/14/20 08:55 Dose: 75 mls/hr Documented by: Remdesivir 200 mg/ Sodium (Chloride) 250 mls @ 250 mls/hr IV ONETIME ONE Stop: 07/13/20 20:59 Last Admin: 07/13/20 21:00 Dose: 250 mls/hr Documented by: Remdesivir 100 mg/ Sodium (Chloride) 100 mls @ 100 mls/hr IV Q24H [facility] Stop: 07/17/20 20:59 Last Admin: 07/17/20 20:23 Dose: 100 mls/hr Documented by: Sodium Chloride (Normal Saline) Confirm Administered Dose 100 mls @ as directed .ROUTE .STK-MED ONE Stop: 07/13/20 21:59 Last Admin: 07/14/20 03:38 Dose: Not Given Documented by: Ondansetron HCl (Zofran Odt) 4 mg PO Q6H PRN PRN Reason: nausea, able to take PO Last Admin: 07/15/20 05:33 Dose: 4 mg Documented by: Potassium Chloride (Klor-Con M20) 40 meq PO Q4H [facility] Stop: 07/16/20 18:01 Last Admin: 07/16/20 17:27 Dose: 40 meq Documented by: - Exam Quality Assessment: Denies: Supplemental Oxygen General: Reports: Alert, Oriented, Cooperative HEENT: Reports: Pupils Equal, Pupils Reactive Neck: Reports: Supple, Trachea Midline Lungs: Reports: Clear to Auscultation, Normal Respiratory Effort Cardiovascular: Reports: Regular Rate, Regular Rhythm GI/Abdominal Exam: Normal Bowel Sounds, Soft, Non-Tender, No Distention (Female) Exam: Deferred Rectal (Female) Exam: Deferred Back Exam: Reports: Normal Inspection, Full Range of Motion Extremities: Normal Inspection, Normal Range of Motion, No Pedal Edema Skin: Reports: Warm, Dry, Intact Neurological: Reports: No New Focal Deficit Psy/Mental Status: Reports: Alert, Normal Affect, Normal Mood
[2020-07-18] MEDS: Ondansetron 4 MG Tab.DIS PO PRN (08:27)
--- NOTE | 2020-07-21 16:50 | CR ---
PROCEDURE INFORMATION: Exam: XR Chest, 1 View Exam date and time: 07/13/2020 6:20 PM Age: 69 years old Clinical indication: Other: Hypoxia TECHNIQUE: Imaging protocol: XR of the chest Views: 1 view. COMPARISON: No relevant prior studies available. FINDINGS: Lungs: Very minimal patchy opacity at the right and left lung bases may represent atelectasis and/or pneumonia. Pleural space: Unremarkable. No pleural effusion. No pneumothorax. Heart/Mediastinum: Unremarkable. No cardiomegaly. Vasculature: Calcification of the aortic knob. Bones/joints: Unremarkable. IMPRESSION: Minimal patchy bilateral lower lobe atelectasis and or minimal pneumonia. Thank you for allowing us to participate in the care of your patient. Dictated and Authenticated by: Ki Capps MD 07/13/2020 8:13 PM Central Time ([place] & [place]) CONFIDENTIALITY STATEMENT This report is intended only for use by the referring physician, and only in accordance with law. If you received this in error, call [phone]. Page 1 of 1 MTDD
== END 2020-07-18 10:45 | disposition home or self-care (01) | DRG 177 ==
LOC: UNDOADMIN 17:56 → JD.MS 17:56
PROVIDERS: ADMIT Internal Medicine; ATTEND Internal Medicine
PROC: XW033E5 Introduction of Remdesivir Anti-infective into Peripheral Vein, Percutaneous Approach, New Technology Group 5 (ICD-10-PCS; principal; 2020-07-13)
PROC: XW033F5 Introduction of Other New Technology Therapeutic Substance into Peripheral Vein, Percutaneous Approach, New Technology Group 5 (ICD-10-PCS; 2020-07-13)
PROC: XW13325 Transfusion of Convalescent Plasma (Nonautologous) into Peripheral Vein, Percutaneous Approach, New Technology Group 5 (ICD-10-PCS; 2020-07-13)
DX: U07.1 COVID-19 (principal); J96.01 Acute respiratory failure with hypoxia; I25.10 Atherosclerotic heart disease of native coronary artery without angina pectoris; K21.9 Gastro-esophageal reflux disease without esophagitis; E78.5 Hyperlipidemia, unspecified; I12.9 Hypertensive chronic kidney disease with stage 1 through stage 4 chronic kidney disease, or unspecified chronic kidney disease; N18.30 Chronic kidney disease, stage 3 unspecified; Z90.49 Acquired absence of other specified parts of digestive tract; Z90.710 Acquired absence of both cervix and uterus
CPT/HCPCS: 36415; 36430; 71045; 71045-26; 80053; 82306; 82728; 83605; 83615; 83735; 83880; 84100; 84145; 84484; 85025; 85379; 86140; 86900; 86901; 99222; 99232; 99239; A9270-GY; J1100; J1650; J7030; J7050; J8540; P9017